=== PATIENT | female | born 1995 | race Caucasian/White ===

== ENCOUNTER 2017-04-30 13:25 | Outpatient (CLI) | payer OTHER, SELFPAY ==
[2017-04-30 13:46] VITALS: BMI 33.6
[2017-04-30 13:57] LABS: Hematocrit 33.2 % (37-47); Hemoglobin 10.7 g/dl (12.0-15.0); Mean Corp Hgb Conc 32.2 g/gl (32-36); Mean Corpuscular Hgb 24.7 pg (27.0-32.0); Mean Corpuscular Volume 76.7 fL (81-99); Mean Platelet Vol. 11.4 fl (6.2-12.0); Platelet Count 242 K/mm3 (150-450); Red Blood Count 4.33 M/mm3 (4.2-5.4); White Blood Count 11.4 K/mm3 (4.4-11.0)
[2017-04-30 14:01] LABS: Scan Indicated on CBC? Y/N NO
[2017-04-30 14:05] LABS: Partial Thromboplast Time 20.1 Seconds (24.1-36.2); Prothrombin Time (Protime)PT. 12.5 SECONDS (11.7-14.9)
[2017-04-30 14:07] LABS: AST(SGOT) 17 U/L (15-37); Alanine Aminotransfer ALT/SGPT 16 U/L (13-56); EST Glomerular Filtration Rate 130 mL/min (>60); Est Glom Filt Rate - Afr Amer 158 mL/min (>60); Estimated Creatinine Clearance 120.63 ml/min; Uric Acid 4.1 mg/dL (2.6-6.0)
[2017-04-30 15:01] LABS: Protein, Urine (Random) 11.1 mg/dL (<11.9); Protein:Creat Ratio 294 mg/g CRE (0-200)
--- NOTE | 2017-05-08 09:28 | OB.TRI.NOTE ---
History of Present Illness Date of Service: 04/30/17 Was patient seen by the physician?: Yes Reason For Visit: R/O PIH Date of Service: 04/30/17 Final STEPHANI Source: US <20 weeks Gestational age: 38+ History of Present Illness: 38+ week intrauterine presents to the office with elevated blood pressure. Sent to labor and delivery for PIH labs and extended monitoring. Home Medications Medication Instructions Recorded Vits [Prenatabs FA ] 1 tablet PO DAILY 04/30/17 Ibuprofen [Motrin] 800 mg PO TID PRN PRN #30 tab 05/02/17 Allergies No Known Allergies Allergy (Verified 04/30/17 13:46) NST - FHR Rate Baby A NST Reactive:: Yes Impression/Plan 38+ week intrauterine with early intermittent gestational hypertension and normal PIH labs; blood pressures subsided after bedrest and monitoring. Will have patient follow-up closely in the office and start bedrest. To call if she has any additional induced hypertension symptoms. Nonstress test reactive.
== END 2017-04-30 15:30 | disposition home or self-care (01) ==
LOC: WPOUT 13:25 → WP 13:26
PROVIDERS: Visit Provider Obstetrics & Gynecology
DX: O13.3 Gestational [pregnancy-induced] hypertension without significant proteinuria, third trimester (principal); Z3A.38 38 weeks gestation of pregnancy
CPT/HCPCS: 36415; 59025; 59050; 82565; 82570; 84156; 84450; 84460; 84550; 85027; 85610; 85730; 99218; G0378

== ENCOUNTER 2017-05-01 10:55 | Inpatient (IN) | payer OTHER, SELFPAY ==
[2017-05-01 11:09] VITALS: BMI 33.8
[2017-05-01 11:40] LABS: Hematocrit 33.7 % (37-47); Hemoglobin 10.6 g/dl (12.0-15.0); Mean Corp Hgb Conc 31.5 g/gl (32-36); Mean Corpuscular Hgb 24.3 pg (27.0-32.0); Mean Corpuscular Volume 77.1 fL (81-99); Mean Platelet Vol. 9.9 fl (6.2-12.0); Platelet Count 237 K/mm3 (150-450); RBC Distribution Width CV 15.1 % (11.6-14.6); RBC Distribution Width SD 42.7 fl (35.1-43.9); Red Blood Count 4.37 M/mm3 (4.2-5.4); Scan Indicated on CBC? Y/N NO; White Blood Count 9.9 K/mm3 (4.4-11.0)
[2017-05-01 11:46] LABS: Prothrombin Time (Protime)PT. 12.3 SECONDS (11.7-14.9)
[2017-05-01 11:51] LABS: AST(SGOT) 16 U/L (15-37); Alanine Aminotransfer ALT/SGPT 17 U/L (13-56); Creatinine, Serum 0.66 mg/dL (0.55-1.02); EST Glomerular Filtration Rate 117 mL/min (>60); Est Glom Filt Rate - Afr Amer 141 mL/min (>60); Estimated Creatinine Clearance 109.66 ml/min; Uric Acid 3.9 mg/dL (2.6-6.0)
[2017-05-01] MEDS: Lactated Ringers 1,000 ML 50 ML IV ×3 (12:23→23:15)
[2017-05-01] MEDS: Oxytocin 30 units/NS 500 ml 30 UNITS/500 ML IV.SOLN IV (12:23)
[2017-05-01 12:50] LABS: Protein, Urine (Random) 20.8 mg/dL (<11.9); Protein:Creat Ratio 369 mg/g CRE (0-200)
[2017-05-01] MEDS: Acetaminophen 325 MG Tablet PO (16:57)
[2017-05-01] MEDS: 0.9% Normal Saline 100 ML IV.SOLN. INTRA-UTER (18:47)
--- NOTE | 2017-05-01 18:58 | PCM.PN.BLA ---
Progress Note LABOR PROGRESS NOTE Headache resolved with Tylenol. Denies vision changes, abdominal pain. Has intermittent contractions. AVSS GEN - NAD,AAO x 3 SVE 1/70/-2 TOCO 4/10 min FHR 125, moderate variability, +acceleratiosn, no decelerations Neuro: +2 b/l LE and UE DTRs, no clonus ABD: soft, gravid, nontender A/P: 21yo G1 @ 39wga with preeclampsia, FHR Cat I -Labs and PMH reviewed with patient -Advised olivo bulb, reviewed risks, benefits, indications. Patient agreed to proceed. Olivo bulb placed with 55cc of NS. -Continue pitocin as tolerated by mother and fetus
[2017-05-01] MEDS: Nalbuphine 10 MG/ML Ampul IV (21:55)
[2017-05-02] MEDS: Nalbuphine 10 MG/ML Ampul IV ×3 (04:48→16:36)
[2017-05-02] MEDS: Lactated Ringers 1,000 ML 50 ML IV ×2 (06:36→17:45)
--- NOTE | 2017-05-02 08:33 | PCM.PN.OB ---
Subjective: Mild headache. Some contractions felt. Objective: Afeb BPs 130s/80-90s FHR tracing Cat1 - Physical Exam General: Alert, Oriented x3, Cooperative, No apparent distress Lungs: Clear to auscultation, Normal air movement Cardiovascular: Regular rate, Regular Rhythm Abdomen: Soft, Non Tender, Non-Distended, Gravid Extremities: Edema - 1+ Skin: No rashes Neurological: Neuro grossly intact Psych/Mental Status: Normal Affect Weight: 191 lb 2.252 oz Body Mass Index (BMI) 33.8 Intake and Output for Last 24 Hours 04/30/17 05/01/17 05/02/17 23:59 23:59 23:59 Intake Total 4264 / 4264 Output Total 900 / 900 Balance 3364 / 3364 Laboratory Tests Past 24 Hrs 05/01/17 05/01/17 05/01/17 11:20 11:20 11:20 WBC 9.9 RBC 4.37 Hgb 10.6 L Hct 33.7 L MCV 77.1 L MCH 24.3 L MCHC 31.5 L RDW 15.1 H RDW Differential 42.7 Plt Count 237 MPV 9.9 PT 12.3 INR 1.0 APTT 25.0 Creatinine Estim Creat Clear Calc Est GFR (MDRD) Af Amer Est GFR (MDRD) Non-Af Uric Acid AST ALT U Random Total Protein Urine Creatinine Protein/Creatinin Ratio Blood Type O POSITIVE Antibody Screen NEGATIVE 05/01/17 05/01/17 11:20 12:10 WBC RBC Hgb Hct MCV MCH MCHC RDW RDW Differential Plt Count MPV PT INR APTT Creatinine 0.66 Estim Creat Clear Calc 109.66 Est GFR (MDRD) Af Amer 141 Est GFR (MDRD) Non-Af 117 Uric Acid 3.9 AST 16 ALT 17 U Random Total Protein 20.8 H Urine Creatinine 56.40 Protein/Creatinin Ratio 369 H Blood Type Antibody Screen Assessment/Plan Admitted for induction of labor secondary to hypertension, likely preeclampsia. CE last 3cm membranes intact. Will continue pitocin induction. Consider AROM when jose luis better.
[2017-05-02] MEDS: Oxytocin 30 units/NS 500 ml 30 UNITS/500 ML IV.SOLN IV ×2 (11:01→23:54)
--- NOTE | 2017-05-02 12:25 | PCM.PN.OB ---
Subjective: Appears comfortable Objective: Afeb VSS FHR tracing Cat 1 - Physical Exam Comment: CE /-1 Weight: 191 lb 2.252 oz Body Mass Index (BMI) 33.8 Intake and Output for Last 24 Hours 04/30/17 05/01/17 05/02/17 23:59 23:59 23:59 Intake Total 4264 / 4264 Output Total 1500 / 1500 Balance 2764 / 2764 Laboratory Tests Past 24 Hrs 05/01/17 05/01/17 11:20 12:10 U Random Total Protein 20.8 H Urine Creatinine 56.40 Protein/Creatinin Ratio 369 H Blood Type O POSITIVE Antibody Screen NEGATIVE Assessment/Plan AROM performed with clear fluid noted. IUPC placed
--- NOTE | 2017-05-02 17:03 | PCM.PN.OB ---
Subjective: Uncomfortable with contractions Objective: BP elevated with painful contractions - Physical Exam General: Alert, Oriented x3, Cooperative, No apparent distress Abdomen: Non Tender, Gravid, Appropriate for Gestational Age Weight: 191 lb 2.252 oz Body Mass Index (BMI) 33.8 Intake and Output for Last 24 Hours 04/30/17 05/01/17 05/02/17 23:59 23:59 23:59 Intake Total 4944 / 4944 Output Total 2650 / 2650 Balance 2294 / 2294 Assessment/Plan No significant change in cervical exam over the last 5 hours. Pitocin at 20mu/min. Contractions adequate by Motevideo units. Will continue induction.,
--- NOTE | 2017-05-02 17:07 | PN.OBGYN_ITS ---
Subjective: Uncomfortable with contractions Objective: BP elevated with painful contractions - Physical Exam General: Alert, Oriented x3, Cooperative, No apparent distress Abdomen: Non Tender, Gravid, Appropriate for Gestational Age Weight: 191 lb 2.252 oz Body Mass Index (BMI) 33.8 Intake and Output for Last 24 Hours 04/30/17 05/01/17 05/02/17 23:59 23:59 23:59 Intake Total 4944 / 4944 Output Total 2650 / 2650 Balance 2294 / 2294 Assessment/Plan No significant change in cervical exam over the last 5 hours. Pitocin at 20mu/ min. Contractions adequate by Motevideo units. Will continue induction.,
[2017-05-02] MEDS: Oxytocin 30 units/NS 500 ml 30 UNITS/500 ML IV.SOLN 334 UNITS IV (22:45)
--- NOTE | 2017-05-02 22:57 | PCM.OB.VAG ---
- Problem List (1) Pre-eclampsia added to pre-existing hypertension Status: Acute Vaginal Delivery Maternal Presentation: Medically Indicated Induction Presents with elevated BPs and headache with increase in LE edema. Elevated Creatinine to protein ratio Method of Induction: Pitocin Medical Reason for Induction: Gestational Hypertension, Preeclampsia, eclampsia Amniotic Membrane Rupture Type: Artificial Rupture of Membrane time: 1230 Amniotic Fluid Description: Clear Final STEPHANI: 05/08/17 Final STEPHANI Source: US <20 weeks Gestational age: 39 Weeks and 1 Days Date of Procedure: 05/02/17 Pre-Operative Diagnosis: Labor Post-Operative Diagnosis: Same Surgery/ Procedure Performed: Spontaneous Vaginal Delivery Anesthesiologist: Edgardo Almaguer Type of Anesthesia: Epidural Description of Procedure: Progressed over 27 hours to FD then pushed for less than one hour to deliver a live male without complication. After delivery the nares and mouth were suctioned with a bulb suction. Delayed cord clamping was employed. After the cord was clamped and cut the baby was placed on mom's chest. Apgars were 8/9. The placenta was delivered spontaneously intact with a centrally located 3VC. The upper vagina and cervix were inspected and found to be intact. A small first degree posterior vaginal tear was repaired with a single figur of eight stitch of 2-0 vicryl. The uterus contracted well. Presentation: Vertex Placental Delivery Description: Spontaneous Placenta Disposition: [facility] Percentage of Placenta Abruption: 0 Cord Vessel Description: 3 Vessels Cord Entanglement: None Drain: Mejia to straight drain Estimated Blood Loss: 300cc A gender: Male (1 minute): 8 (5 minute): 9 Episiotomy Description: None Laceration: Midline, Vaginal Extension/lac, 1st degree Medications given after delivery: IV Pitocin Complications: None
[2017-05-02] MEDS: Methylergonovine 0.2 MG/ML Ampul IM (23:00)
--- NOTE | 2017-05-02 23:03 | OP.PCM_ITS ---
- Problem List (1) Pre-eclampsia added to pre-existing hypertension Status: Acute Vaginal Delivery Maternal Presentation: Medically Indicated Induction Presents with elevated BPs and headache with increase in LE edema. Elevated Creatinine to protein ratio Method of Induction: Pitocin Medical Reason for Induction: Gestational Hypertension, Preeclampsia, eclampsia Amniotic Membrane Rupture Type: Artificial Rupture of Membrane time: 1230 Amniotic Fluid Description: Clear Final STEPHANI: 05/08/17 Final STEPHANI Source: US <20 weeks Gestational age: 39 Weeks and 1 Days Date of Procedure: 05/02/17 Pre-Operative Diagnosis: Labor Post-Operative Diagnosis: Same Surgery/ Procedure Performed: Spontaneous Vaginal Delivery Anesthesiologist: Edgardo Almaguer Type of Anesthesia: Epidural Description of Procedure: Progressed over 27 hours to FD then pushed for less than one hour to deliver a live male without complication. After delivery the nares and mouth were suctioned with a bulb suction. Delayed cord clamping was employed. After the cord was clamped and cut the baby was placed on mom's chest. Apgars were 8/ 9. The placenta was delivered spontaneously intact with a centrally located 3VC. The upper vagina and cervix were inspected and found to be intact. A small first degree posterior vaginal tear was repaired with a single figur of eight stitch of 2-0 vicryl. The uterus contracted well. Presentation: Vertex Placental Delivery Description: Spontaneous Placenta Disposition: [facility] Percentage of Placenta Abruption: 0 Cord Vessel Description: 3 Vessels Cord Entanglement: None Drain: Mejia to straight drain Estimated Blood Loss: 300cc Infant A gender: Male (1 minute): 8 (5 minute): 9 Episiotomy Description: None Laceration: Midline, Vaginal Extension/lac, 1st degree Medications given after delivery: IV Pitocin Complications: None
--- NOTE | 2017-05-02 23:06 | DCINST_ITS ---
Discharge Diet: No Restrictions Discharge Activity: Return to Normal Activity, May Drive, May Shower Return to work on:: 06/30/17 May shower in (days): 0 May resume sexual activity in: 4-6 weeks Call your doctor if your incision/area has: Continuous Slow Oozing Call your doctor if you observe: Fever of 101 or Higher, Inability to urinate, Inability to have a bowel movement, Using more than one pad per hour, Shortness of breath, Chest pain, Calf discomfort, Uncontrolled pain Cleanse incision/area with: Soap & Water Additional Instructions: If you experience any of the following, contact your healthcare provider. * Bleeding that soaks a pad every hour for 2 hours * Fever 100.4 or higher * Unrelieved incision or abdominal pain * Swelling, redness, discharge or bleeding from your incision or episiotomy site * Your incision begins to separate * Problems urinating (including inability to urinate or burning while urinating) . * Visual changes * Severe headache * Flu-like symptoms * Pain or redness in one of both of your breasts * Pain, warmth, tenderness or swelling in your legs, especially the calf area * Frequent nausea and vomiting * Symptoms of depression or anxiety If you experience any of the following, call 911 or go to the nearest Emergency Room. * Chest pain * Problems breathing * Seizure activity * Partial or complete paralysis of a body part, slurred speech, weakness or drooping of the face, or a sudden inability to walk or hold your balance Allergies/Adverse Reactions: Allergies No Known Allergies Allergy (Verified 04/30/17 13:46) Medications to take at Discharge Vits [Prenatabs FA ] 1 tablet PO DAILY 04/30/17 Ibuprofen [Motrin] 800 mg PO TID PRN PRN #30 tab 05/02/17 The following prescriptions were given: Ibuprofen [Motrin] 800 mg PO TID PRN PRN #30 tab PRN Reason: pain or cramping Please Follow Up With: Cooper Greer MD When: 6 weeks Primary Care Physician: Care Physician,No Primary [Primary Care Provider] - Proposed Discharge Date: 05/04/17
[2017-05-02] MEDS: Oxytocin 30 units/NS 500 ml 30 UNITS/500 ML IV.SOLN 167 UNITS IV (23:15)
[2017-05-03] MEDS: Ibuprofen 600 MG Tablet PO ×3 (00:27→20:40)
[2017-05-03] MEDS: 0.9% Saline Lock 10 ML Syringe IV (00:28)
[2017-05-03 01:15] VITALS: BP 162/74; PULSE 101; RESP 18; TEMP 36.8
[2017-05-03 04:50] VITALS: BP 130/79; PULSE 112; RESP 18; TEMP 36.8
[2017-05-03 05:19] LABS: Hematocrit 30.2 % (37-47); Hemoglobin 9.7 g/dl (12.0-15.0); Mean Corp Hgb Conc 32.1 g/gl (32-36); Mean Corpuscular Hgb 24.7 pg (27.0-32.0); Mean Platelet Vol. 9.4 fl (6.2-12.0); Platelet Count 205 K/mm3 (150-450); RBC Distribution Width CV 15.3 % (11.6-14.6); Red Blood Count 3.92 M/mm3 (4.2-5.4); Scan Indicated on CBC? Y/N NO
--- NOTE | 2017-05-03 09:11 | PCM.PN.OB ---
Patient Problems: Active and Suspected Problems Pre-eclampsia added to pre-existing hypertension (Acute) Subjective: Doing well no complaints. Objective: Afeb VSS - Physical Exam General: Alert, Oriented x3, Cooperative, No apparent distress Lungs: Clear to auscultation, Normal air movement Cardiovascular: Regular rate, Regular Rhythm Abdomen: Soft, Non Tender, Non-Distended, - - Fundus firm nontender Extremities: No edema, No Calf Tenderness Skin: No rashes Neurological: Neuro grossly intact Psych/Mental Status: Normal Affect Comment: Lochia light Vital Signs Temp Pulse Resp BP 98.2 F 112 H 18 130/79 H 05/03/17 04:50 05/03/17 04:50 05/03/17 04:50 05/03/17 04:50 Oxygen Delivery Method Room Air Weight: 191 lb 2.252 oz Body Mass Index (BMI) 33.8 Intake and Output for Last 24 Hours 05/01/17 05/02/17 05/03/17 23:59 23:59 23:59 Intake Total 7522 / 7522 1887 / 1887 Output Total 3650 / 3650 2700 / 2700 Balance 3872 / 3872 -813 / -813 Laboratory Tests Past 24 Hrs 05/03/17 05:05 WBC 14.0 H RBC 3.92 L Hgb 9.7 L Hct 30.2 L MCV 77.0 L MCH 24.7 L MCHC 32.1 RDW 15.3 H RDW Differential 43.0 Plt Count 205 MPV 9.4 Assessment/Plan Active and Suspected Problems Pre-eclampsia added to pre-existing hypertension (Acute) Doing well on PP day#1. BPs stable. Continue routine PP care.
[2017-05-03 10:00] VITALS: BP 136/85; PULSE 100; RESP 16; TEMP 36.6
[2017-05-03 14:00] VITALS: BP 151/86; PULSE 99; RESP 16; TEMP 36.6
[2017-05-03] MEDS: Senna/Docusate Sodium 1 Tablet PO (14:05)
[2017-05-03 20:45] VITALS: BP 147/85; PULSE 88; RESP 16; TEMP 36.6
[2017-05-04 02:00] VITALS: BP 134/85; PULSE 89; RESP 16; TEMP 36.6
[2017-05-04 08:00] VITALS: BP 134/86; PULSE 88; RESP 18; TEMP 36.4
--- NOTE | 2017-05-04 08:50 | PCM.PN.OB ---
Patient Problems: Active and Suspected Problems Pre-eclampsia added to pre-existing hypertension (Acute) Subjective: Doing well no specific complaints. Bleeding light. Objective: AFeb VSS - Physical Exam General: Alert, Oriented x3, Cooperative, No apparent distress Lungs: Clear to auscultation, Normal air movement Cardiovascular: Regular rate, Regular Rhythm Abdomen: Soft, Non Tender, Non-Distended, - - Fundus firm nontender Extremities: Edema - mild Skin: No rashes Neurological: Neuro grossly intact Psych/Mental Status: Normal Affect Comment: Lochia light Vital Signs Temp Pulse Resp BP 97.9 F 89 16 134/85 H 05/04/17 02:00 05/04/17 02:00 05/04/17 02:00 05/04/17 02:00 Oxygen Delivery Method Room Air Weight: 191 lb 2.252 oz Body Mass Index (BMI) 33.8 Intake and Output for Last 24 Hours 05/02/17 05/03/17 05/04/17 23:59 23:59 23:59 Intake Total 7522 / 7522 1887 / 1887 Output Total 3650 / 3650 2700 / 2700 Balance 3872 / 3872 -813 / -813 Assessment/Plan Active and Suspected Problems Pre-eclampsia added to pre-existing hypertension (Acute) Doing well on PP day#2. Cleared for discharge home today. Home going instructions and warnings given.
--- NOTE | 2017-05-04 08:52 | PCM.DC.SUM ---
Discharge Date and Diagnosis - Problem List Patient Problems: Active and Suspected Problems Pre-eclampsia added to pre-existing hypertension (Acute) Date of Admission: 05/01/17 Date of Discharge: 05/04/17 - Primary Discharge Diagnosis Active and Suspected Problems Pre-eclampsia added to pre-existing hypertension (Acute), S/P Hospital Course and Treatment Consultations 05/01/17 11:10 Consult: Anesthesia Routine Comment: Reason For Exam: INDUCTION Operations: None Procedures: - - Pitocin induction, epidural, Summary of Care Provided: The patient is a 21 year old F [admitted with elevated BP/preeclampsia. Pitocin induction was performed with resultant without complication. Post course unremarkable. Discharged home on PP day#2.] Discharge Diet: No Restrictions Discharge Activity: Return to Normal Activity, May Drive, May Shower Return to work on:: 06/30/17 May shower in (days): 0 May resume sexual activity in: 4-6 weeks Call your doctor if your incision/area has: Continuous Slow Oozing Call your doctor if you observe: Fever of 101 or Higher, Inability to urinate, Inability to have a bowel movement, Using more than one pad per hour, Shortness of breath, Chest pain, Calf discomfort, Uncontrolled pain Cleanse incision/area with: Soap & Water Home Medications: Medications to take at Discharge Vits [Prenatabs FA ] 1 tablet PO DAILY 04/30/17 Ibuprofen [Motrin] 800 mg PO TID PRN PRN #30 tab 05/02/17 Following Prescrptions Were Given to Patient: Ibuprofen [Motrin] 800 mg PO TID PRN PRN #30 tab PRN Reason: pain or cramping Primary Care Physician: Care Physician,No Primary [Primary Care Provider] - Please Follow Up With: Cooper Greer MD When: 6 weeks Disposition: Home Minutes spent on discharge:: 15 Patient Condition:: Good Meaningful Use Info Meaningful Use Diagnoses (Choose all that apply): None applicable
[2017-05-04] MEDS: Acetaminophen 500 MG Tablet 1000 MG PO ×2 (10:47→19:02)
[2017-05-04 14:00] VITALS: BP 147/95; PULSE 69; RESP 18; TEMP 36.4; O2SAT 100
--- NOTE | 2017-05-04 15:30 | NURSING ---
Dr. Dodge notified of BP - ok to d/c to [facility].
[2017-05-04 19:00] VITALS: BP 143/99; PULSE 92; RESP 20; TEMP 36.4; O2SAT 97
--- NOTE | 2017-05-06 08:21 | PCM.HP.STD ---
Problem List (1) Pre-eclampsia added to pre-existing hypertension Status: Acute History of Present Illness Date of Admission: 05/01/17 Chief Complaint: elevated BP headache, edema. 38+ weeks The patient is a 21 year old F [found to have elevated BPs in office with mild heache. 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 Denies: Chest Pain, Chest Pressure, Chest Tightness Gastrointestinal: Denies: Abdominal Pain Genitourinary: Denies: Dysuria Neurological: Reports: Headaches - mild not relieved by tylenol Psychiatric: Denies: Anxiety, Depression VTE Information - Inpt Only VTE Present on Admission: No VTE Mechan Device Prophylaxis: None VTE Pharm Prophylaxis ordered?: No Reason prophylaxis not ordered:: Treatment Not Indicated Subjective: Alert no specific complaints other than headache and lower extremity edema Objective: Afe BPs 150-160s/90-100s - Physical Exam General: Alert, Oriented x3, Cooperative, No apparent distress Lungs: Clear to auscultation, Normal air movement Cardiovascular: Regular rate, Regular Rhythm Abdomen: Soft, Non Tender, Non-Distended, Gravid, Appropriate for Gestational Age Extremities: Edema - 1+ Skin: No rashes Neurological: Neuro grossly intact Psych/Mental Status: Normal Affect Comment: CE 1-2 cm 50% Vital Signs Temp Pulse Resp BP Pulse Ox 97.5 F L 92 20 H 143/99 H 97 05/04/17 19:00 05/04/17 19:00 05/04/17 19:00 05/04/17 19:00 05/04/17 19:00 Oxygen Delivery Method Room Air Weight: 191 lb 2.252 oz Body Mass Index (BMI) 33.8 Assessment/Plan Preeclampsia at term. Admit for induction of labor. Reassuring FHR tracing.
--- NOTE | 2017-05-06 08:26 | HP.PCM_ITS ---
Problem List (1) Pre-eclampsia added to pre-existing hypertension Status: Acute History of Present Illness Date of Admission: 05/01/17 Chief Complaint: elevated BP headache, edema. 38+ weeks The patient is a 21 year old F [found to have elevated BPs in office with mild heache. 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 Denies: Chest Pain, Chest Pressure, Chest Tightness Gastrointestinal: Denies: Abdominal Pain Genitourinary: Denies: Dysuria Neurological: Reports: Headaches - mild not relieved by tylenol Psychiatric: Denies: Anxiety, Depression VTE Information - Inpt Only VTE Present on Admission: No VTE Mechan Device Prophylaxis: None VTE Pharm Prophylaxis ordered?: No Reason prophylaxis not ordered:: Treatment Not Indicated Subjective: Alert no specific complaints other than headache and lower extremity edema Objective: Afe BPs 150-160s/90-100s - Physical Exam General: Alert, Oriented x3, Cooperative, No apparent distress Lungs: Clear to auscultation, Normal air movement Cardiovascular: Regular rate, Regular Rhythm Abdomen: Soft, Non Tender, Non-Distended, Gravid, Appropriate for Gestational Age Extremities: Edema - 1+ Skin: No rashes Neurological: Neuro grossly intact Psych/Mental Status: Normal Affect Comment: CE 1-2 cm 50% Vital Signs Temp Pulse Resp BP Pulse Ox 97.5 F L 92 20 H 143/99 H 97 05/04/17 19:00 05/04/17 19:00 05/04/17 19:00 05/04/17 19:00 05/04/17 19:00 Oxygen Delivery Method Room Air Weight: 191 lb 2.252 oz Body Mass Index (BMI) 33.8 Assessment/Plan Preeclampsia at term. Admit for induction of labor. Reassuring FHR tracing.
== END 2017-05-04 19:10 | disposition home or self-care (01) | DRG 774 ==
PROVIDERS: Admitting Provider Obstetrics & Gynecology; Visit Provider Obstetrics & Gynecology
DX: O11.4 Pre-existing hypertension with pre-eclampsia, complicating childbirth (principal); O10.92 Unspecified pre-existing hypertension complicating childbirth; O71.4 Obstetric high vaginal laceration alone; O13.4 Gestational [pregnancy-induced] hypertension without significant proteinuria, complicating childbirth; Z37.0 Single live birth; Z3A.39 39 weeks gestation of pregnancy; Z87.891 Personal history of nicotine dependence
CPT/HCPCS: 59025; 59050; 82565; 82570; 84156; 84450; 84460; 84550; 85027; 85610; 85730; 86850; 86900; 99218; J7050; J7120; 90686; A4216; G0378

== ENCOUNTER → 2018-11-11 | Outpatient (CLI) | payer SELFPAY ==
[2018-11-11 17:33] LABS: Chlamydia Trachomatis by PCR Negative (Negative); Neisserai gonorrhoeae by PCR Negative (Negative); Probe Check PASS; Sample Adequacy Control PASS; Specimen Processing Control PASS
[2018-11-19 12:54] LABS: HPV APTIMA, High Risk Positive (Negative)
[2018-11-19 12:58] LABS: HPV Reflexed? YES, CHARGE PATIENT
== END | disposition home or self-care (01) ==
LOC: LABSPEC 14:39
PROVIDERS: Visit Provider Obstetrics & Gynecology
DX: Z11.3 Encounter for screening for infections with a predominantly sexual mode of transmission (principal); Z12.4 Encounter for screening for malignant neoplasm of cervix
CPT/HCPCS: 87491; 87591; 87624; 88175; G0145

== ENCOUNTER → 2018-11-20 10:03 | Outpatient (CLI) | payer SELFPAY ==
[2018-11-20 13:53] LABS: Absolute Lymphocyte Count 1.83 X10^3/uL (0.83-4.51); Absolute Neutrophil Count 6.6 X10^3/uL (2.0-7.7); Basophil# 0.05 X10^3/uL; Basophil% 0.5 % (0-1); Eosinophil# 0.19 X10^3/uL; Hemoglobin 14.4 g/dL (12.0-15.0); Lymphocyte # 1.83 X10^3/ul (4.0); Lymphocyte % 19.6 % (19-41); Mean Corp Hgb Conc 33.5 g/dL (32-36); Mean Corpuscular Hgb 28.6 pg (27.0-32.0); Mean Corpuscular Volume 85.5 fL (81-99); Mean Platelet Vol. 10.1 fl (6.2-12.0); Monocyte# 0.65 X10^3/uL; NRBC Flagged by Analyzer 0 % (0-5); Neutrophil # 6.57 X10^3/uL (2.7-7.7); Neutrophil % 70.6 % (47-70); Platelet Count 277 K/mm3 (150-450); RBC Distribution Width CV 12.7 % (11.6-14.6); RBC Distribution Width SD 39.4 fl (35.1-43.9); Red Blood Count 5.03 M/mm3 (4.2-5.4); White Blood Count 9.3 K/mm3 (4.4-11.0)
[2018-11-20 13:55] LABS: Color, Urine Yellow (Yellow); Glucose, Dipstick 100 mg/dl (Normal); Ketone-Dipstick Negative (Negative); Leukocyte Esterase-Dipstick 100 /ul (Negative); Nitrite-Dipstick Negative (Negative); Occult Blood-Urine Negative /ul (Negative); Protein-Dipstick Negative (Negative); Urine Bilirubin Dipstick Negative (Negative); Urine Clarity Clear (Clear); Urine Urobilinogen Normal (Normal)
[2018-11-20 14:12] LABS: Thyroid Stim Hormone (TSH) 1.62 uIU/mL (0.358-3.74)
[2018-11-20 14:53] LABS: Amphetamine Urine VISTA NEGATIVE (<1000 ng/mL); Barbiturate Urine VISTA NEGATIVE (< 200 ng/mL); Benzodiazepine Urine VISTA NEGATIVE (< 200 ng/mL); Cocaine Urine VISTA NEGATIVE (< 300 ng/mL); Ecstacy Urine VISTA NEGATIVE (< 500 ng/mL); HIV - WCH Non-Reactive (Nonreactive); Hepatitis B Surface Antigen Non-Reactive (Nonreactive); Hepatitis C Antibody Non-Reactive (Nonreactive); Methadone Urine VISTA NEGATIVE (< 300 ng/mL); PCP Urine VISTA NEGATIVE (< 25 ng/mL); Rubella IgG 63.4 IU/mL; THC Urine VISTA NEGATIVE (< 50 ng/mL); Vista UDS pH Range 6
[2018-11-27 01:45] LABS: Prenatal RPR NONREACTIVE (NONREACTIVE)
== END ==
PROVIDERS: Visit Provider Obstetrics & Gynecology
DX: Z34.81 Encounter for supervision of other normal pregnancy, first trimester (principal)
CPT/HCPCS: 36415; 80307; 81002; 84443; 85025; 86703; 86762; 86803; 87340

== ENCOUNTER → 2018-12-17 14:01 | Outpatient (CLI) | payer OTHER, SELFPAY ==
[2018-12-20 03:06] LABS: AFP MoM Value 1.18 (.); AFP Value-EIA 36.2 ng/mL (.); Comment Report (.); DIA MoM Value 1.48 (.); DSR (By Age) 1008 (.); DSR (Second Trimester) 4737 (.); Insulin Dep Diabetes No (.); Maternal Age At EDD 25.5 yr (.); hCG MoM 0.89 (.); hCG Value 58576 mIU/mL (.)
[2018-12-21 13:45] LABS: Gestat. Age Based On Ultrasound (.)
== END ==
PROVIDERS: Visit Provider Obstetrics & Gynecology
DX: Z34.82 Encounter for supervision of other normal pregnancy, second trimester (principal)
CPT/HCPCS: 36415; 82105; 82677; 84702

== ENCOUNTER → 2019-04-26 14:53 | Outpatient (CLI) | payer OTHER, SELFPAY ==
[2019-04-26 16:10] LABS: Hematocrit 36.9 % (37-47); Hemoglobin 11.7 g/dL (12.0-15.0); Mean Corp Hgb Conc 31.7 g/dL (32-36); Mean Corpuscular Hgb 26.3 pg (27.0-32.0); Mean Corpuscular Volume 82.9 fL (81-99); Mean Platelet Vol. 10.6 fl (6.2-12.0); Platelet Count 250 K/mm3 (150-450); RBC Distribution Width CV 13.8 % (11.6-14.6); Red Blood Count 4.45 M/mm3 (4.2-5.4); White Blood Count 9.2 K/mm3 (4.4-11.0)
[2019-04-26 16:20] LABS: International Normalized Ratio 0.9; Partial Thromboplast Time 25.2 Seconds (24.1-36.2); Prothrombin Time (Protime)PT. 12.4 SECONDS (11.7-14.9)
[2019-04-26 16:36] LABS: AST(SGOT) 17 U/L (15-37); Alanine Aminotransfer ALT/SGPT 16 U/L (13-56); Creatinine, Serum 0.73 mg/dL (0.55-1.02); EST Glomerular Filtration Rate 103 mL/min (>60); Est Glom Filt Rate - Afr Amer 125 mL/min (>60); Uric Acid 3.5 mg/dL (2.6-6.0)
== END ==
PROVIDERS: Visit Provider Obstetrics & Gynecology
DX: O13.3 Gestational [pregnancy-induced] hypertension without significant proteinuria, third trimester (principal); Z3A.00 Weeks of gestation of pregnancy not specified
CPT/HCPCS: 36415; 82565; 84450; 84460; 84550; 85027; 85610; 85730

== ENCOUNTER → 2019-05-11 | Outpatient (CLI) | payer BC, SELFPAY | END | disposition home or self-care (01) | PROVIDERS: Visit Provider Obstetrics & Gynecology | DX: Z36.85 Encounter for antenatal screening for Streptococcus B (principal) | CPT/HCPCS: 87081 ==

== ENCOUNTER 2019-06-01 07:08 | Inpatient (IN) | payer BC, SELFPAY ==
[2019-06-01] VITALS (26 sets, daily range): BP systolic 105–131; BP diastolic 55–93; PULSE 58–107; TEMP 36.2–36.9; O2SAT 98–100; BMI 31.7
[2019-06-01] MEDS: Lactated Ringers 1,000 ML 50 ML IV ×2 (07:30→18:07)
[2019-06-01] MEDS: Oxytocin 30 units/NS 500 ml 30 UNITS/500 ML IV.SOLN IV ×2 (07:51→20:34)
[2019-06-01 07:56] LABS: Absolute Lymphocyte Count 2.18 X10^3/uL (0.83-4.51); Absolute Neutrophil Count 4.2 X10^3/uL (2.0-7.7); Basophil# 0.03 X10^3/uL; Basophil% 0.4 % (0-1); Eosinophil# 0.13 X10^3/uL; Eosinophils% 1.8 % (0-5); Hemoglobin 12.4 g/dL (12.0-15.0); Lymphocyte # 2.18 X10^3/ul (4.0); Lymphocyte % 30.5 % (19-41); Mean Corp Hgb Conc 31.8 g/dL (32-36); Mean Corpuscular Hgb 25.5 pg (27.0-32.0); Mean Corpuscular Volume 80.1 fL (81-99); Mean Platelet Vol. 10.9 fl (6.2-12.0); Monocyte# 0.54 X10^3/uL; Monocyte% 7.6 % (0-10); NRBC Flagged by Analyzer 0 % (0-5); Neutrophil # 4.19 X10^3/uL (2.7-7.7); Neutrophil % 58.7 % (47-70); Platelet Count 217 K/mm3 (150-450); RBC Distribution Width CV 15.6 % (11.6-14.6); RBC Distribution Width SD 44.2 fl (35.1-43.9); Red Blood Count 4.87 M/mm3 (4.2-5.4); White Blood Count 7.1 K/mm3 (4.4-11.0)
--- NOTE | 2019-06-01 08:19 | PCM.HP.OB ---
- Problem List (1) 39 weeks gestation of Status: Acute History Date of Admission: 05/01/17 Final STEPHANI: 06/06/19 Final STEPHANI Source: US <20 weeks Gestational age: 39 Weeks and 2 Days History of this : This is a 23 year-old, G [2], P [1], at 39 weeks gestational age. Here for an elective induction of labor. Allergies No Known Allergies Allergy (Verified 06/01/19 07:26) Home Medications: Home Medications Vits [Prenatabs FA ] 1 tablet PO DAILY 04/30/17 Smoking Status: Former smoker Alcohol: None Number of Fetus(es): 1 NST - FHR Rate Baby A Baseline: 155 Variability:: Moderate Accelerations:: 15 x 15 Decelerations:: None NST Reactive:: Yes FHR Category:: Category I Uterine Activity:: Q4-5min History Past Pregnancies: PRIOR DELIVERY HISTORY DEL DATE GEST LAB WT LB WT OZ TYPE ANES LABOR TX 16 May 04 38 36 8 5 Vag Epidural No Expected Infant Delivery Method: Spontaneous Vaginal Number of Visits: 11 Review of Systems Constitutional: Denies: Chills, Fever, Weight Change HEENT: Denies: Head Aches, Sinus Congestion, Sinus Drainage Cardiovascular: Denies: Chest Pain, Palpitations Respiratory: Denies: Cough, Shortness of breath at rest, Sputum production Gastrointestinal: Denies: Abdominal Pain, Nausea, Vomiting Genitourinary: Denies: Dysuria Musculoskeletal: Denies: Joint Pain, Joint Tenderness Skin: Denies: Rash, Wounds Neurological: Denies: Numbness, Tingling, Focal weakness Psychiatric: Denies: Anxiety, Depression, Homicidal Ideations, Suicidal Ideations Hematologic/ Lymphatic: Denies: Easy Bruising, Easy Bleeding Physical Exam Vitals: Vital Signs Temp Pulse BP 98.1 F 86 121/78 H 06/01/19 07:57 06/01/19 07:45 06/01/19 07:45 General: Alert, Oriented x3, No apparent distress HEENT: Atraumatic, Normocephalic. Negative for: Thyromegaly, Lymphadenopathy Cardiovascular: Regular rate, Regular Rhythm Lungs: Clear to auscultation Abdomen: Bowel Sounds Present, Gravid Neurological: Deep Tendon Reflexes 2+/4 and Symmetrical, Neuro grossly intact MANAGEMENT TRAINER: Normal external genitalia. Negative for: Vulvar lesions Estimated gestational size: Appropriate for gestational size Presentation: Cephalic Cervix Dilation (cm): 1.5 Station: -3 Effacement (%): 50 Assessment/Plan All Active Problems Pre-eclampsia added to pre-existing hypertension (Acute) 39 weeks gestation of (Acute) A/P: This is a 23 year-old, G [2], P [1], at 39 weeks gestational age. Here for elective induction of labor with Pitocin. May AROM later. Continue with IOL. Plans to avoid epidural, but understands pain options. To recheck SVE in 4 hours or as needed Expect
--- NOTE | 2019-06-01 13:05 | PCM.PN.BLA ---
Progress Note S: Starting to really feel contractions, but doing well O: VSS UC Q2-3minutes SVE 1.5/50/-2 Membranes intact Baseline FHR 150, +accels, -decels, moderate variability A/P: IOL at 39 weeks Reactive NST Pitocin 14u Cervix has unchanged. Will plan to recheck in 2 hours with potential AROM STROKE Vital Signs/Narrative: Vital Signs Temp Pulse BP 06/01/19 12:12 97.3 F L 70 125/77 H 06/01/19 11:29 61 119/79 06/01/19 10:54 63 122/86 H 06/01/19 10:20 59 L 119/82 H 06/01/19 10:15 98.4 F
--- NOTE | 2019-06-01 17:12 | PN.OBGYN_ITS ---
Patient Problems: Active and Suspected Problems 39 weeks gestation of (Acute) Subjective: Feeling pain with contractions, moderate, 7/10. Tired, but doing okay. Objective: VSS. Contractions palpate moderate. UC 2-5 minutes. Pitocin on at 20u. SVE unchanged 1.5/50/-2 mid moderate - Physical Exam Vitals/I&O's: Vital Signs Temp Pulse BP Pulse Ox 97.7 F L 58 L 105/55 L 100 06/01/19 16:19 06/01/19 16:39 06/01/19 16:39 06/01/19 15:43 Weight: 81.2 kg Body Mass Index (BMI) 31.7 Intake and Output for Last 24 Hours 05/30/19 05/31/19 06/01/19 23:59 23:59 23:59 Intake Total 1324.10 / 1324.10 Output Total 1750 / 1750 Balance -425.90 / -425.90 General: Alert, Oriented x3, Cooperative HEENT: Atraumatic, PERRLA, EOMI, Normocephalic Neck: Supple, No JVD, Negative Carotid Bruits Lungs: Clear to auscultation, Normal air movement Cardiovascular: Regular rate, No murmurs Abdomen: Bowel Sounds Present, Soft, Non Tender Extremities: No edema, Capillary Refill Less than 3 Seconds Skin: No rashes, No breakdown Musculoskeletal: No Tenderness to Palpation of Joints or Extremities Neurological: Cranial nerves II-XII grossly intact Psych/Mental Status: Normal Affect, Appropriate Laboratory Results 06/01/19 07:30: WBC 7.1, RBC 4.87, Hgb 12.4, Hct 39.0, MCV 80.1 L, MCH 25.5 L, MCHC 31.8 L, RDW Std Deviation 44.2 H, RDW Coeff of Angel 15.6 H, Plt Count 217, MPV 10.9, Immature Gran % (Auto) 1.000 H, Neut % (Auto) 58.7, Lymph % (Auto) 30.5, [place] % (Auto) 7.6, Eos % (Auto) 1.8, Baso % (Auto) 0.4, Absolute Neuts (auto) 4.2, Absolute Lymphs (auto) 2.18, Nucleated RBC % 0 06/01/19 07:30: Blood Type O POSITIVE, Antibody Screen NEGATIVE Current Medications Acetaminophen (Tylenol) 325 - 650 mg PO Q4H PRN PRN PRN Reason: Pain Score 1-3/10 Al Hydroxide/Mg Hydroxide (Mylanta Ii) 15 - 30 ml PO Q4H PRN PRN PRN Reason: INDIGESTION Citric Acid/Sodium Citrate (Bicitra) 30 ml PO X1 PRN PRN Reason: Section Fentanyl Citrate (Sublimaze (100mcg Ampule)) 25 - 50 mcg IV Q2H PRN PRN PRN Reason: Pain Score 4-10/10 Lactated Ringer's () 500 mls @ 999 mls/hr IV .Q31M PRN PRN Reason: Epidural Lactated Ringer's () 500 mls @ 999 mls/hr IV .Q31M PRN PRN Reason: Corrective Measures Lactated Ringer's () 1,000 mls @ 50 mls/hr IV .Q20H [facility] Last Admin: 06/01/19 07:30 Dose: 50 mls/hr Documented by: Oxytocin/Sodium Chloride () 30 units in 500 mls @ 2 mls/hr IV .Q250H [facility] Last Infusion: 06/01/19 17:08 Dose: 0 mls/hr Documented by: Ondansetron HCl (Zofran) 4 mg IV Q4H PRN PRN PRN Reason: NAUSEA Prochlorperazine Edisylate (Compazine Iv) 10 mg IV Q6H PRN PRN PRN Reason: NAUSEA Sodium Chloride () 10 - 40 ml IV X1 PRN PRN Reason: SALINE FLUSH Medical Necessity - Tobacco Use Smoking Status: Former smoker Assessment/Plan All Active Problems Pre-eclampsia added to pre-existing hypertension (Acute) 39 weeks gestation of (Acute) A/P: elective induction of labor Pitocin at max 20/u with irregular contraction pattern Discussed case with Dr. Jeffries whom agrees with travel writer's plan to turn off Pitocin, allow patient to eat, and start Cytotec for cervical ripening. Patient educated on plan of care and is agreeable d/t unchanged cervix. Will eat and start Cytotec in 1 hour
--- NOTE | 2019-06-01 20:29 | PN.OBGYN_ITS ---
Patient Problems: Active and Suspected Problems 39 weeks gestation of (Acute) Subjective: Contractions are a lot less painful now /10. Feeling well. Objective: VSS. UC Q3-5 minutes. SVE 2/75/-1, soft, mid to anterior. FHR baseline 150, + accels, - decels, moderate variability. - Physical Exam Vitals/I&O's: Vital Signs Temp Pulse BP Pulse Ox 98.1 F 89 122/80 H 100 06/01/19 19:20 06/01/19 19:20 06/01/19 19:20 06/01/19 18:43 Weight: 81.2 kg Body Mass Index (BMI) 31.7 Intake and Output for Last 24 Hours 05/30/19 05/31/19 06/01/19 23:59 23:59 23:59 Intake Total 2374.93 / 2374.93 Output Total 2750 / 2750 Balance -375.07 / -375.07 General: Alert, Oriented x3, Cooperative HEENT: Atraumatic, PERRLA, EOMI, Normocephalic Neck: Supple, No JVD, Negative Carotid Bruits Lungs: Clear to auscultation, Normal air movement Cardiovascular: Regular rate, No murmurs Abdomen: Bowel Sounds Present, Soft, Non Tender, Gravid Extremities: No edema, Capillary Refill Less than 3 Seconds Skin: No rashes, No breakdown Musculoskeletal: No Tenderness to Palpation of Joints or Extremities Neurological: Cranial nerves II-XII grossly intact Psych/Mental Status: Normal Affect, Appropriate Laboratory Results 06/01/19 07:30: WBC 7.1, RBC 4.87, Hgb 12.4, Hct 39.0, MCV 80.1 L, MCH 25.5 L, MCHC 31.8 L, RDW Std Deviation 44.2 H, RDW Coeff of Angel 15.6 H, Plt Count 217, MPV 10.9, Immature Gran % (Auto) 1.000 H, Neut % (Auto) 58.7, Lymph % (Auto) 30.5, [place] % (Auto) 7.6, Eos % (Auto) 1.8, Baso % (Auto) 0.4, Absolute Neuts (auto) 4.2, Absolute Lymphs (auto) 2.18, Nucleated RBC % 0 06/01/19 07:30: Blood Type O POSITIVE, Antibody Screen NEGATIVE Current Medications Acetaminophen (Tylenol) 325 - 650 mg PO Q4H PRN PRN PRN Reason: Pain Score 1-3/10 Al Hydroxide/Mg Hydroxide (Mylanta Ii) 15 - 30 ml PO Q4H PRN PRN PRN Reason: INDIGESTION Citric Acid/Sodium Citrate (Bicitra) 30 ml PO X1 PRN PRN Reason: Section Fentanyl Citrate (Sublimaze (100mcg Ampule)) 25 - 50 mcg IV Q2H PRN PRN PRN Reason: Pain Score 4-10/10 Lactated Ringer's () 500 mls @ 999 mls/hr IV .Q31M PRN PRN Reason: Epidural Lactated Ringer's () 500 mls @ 999 mls/hr IV .Q31M PRN PRN Reason: Corrective Measures Lactated Ringer's () 1,000 mls @ 50 mls/hr IV .Q20H [facility] Last Admin: 06/01/19 18:07 Dose: 50 mls/hr Documented by: Oxytocin/Sodium Chloride () 30 units in 500 mls @ 2 mls/hr IV .Q250H [facility] Last Infusion: 06/01/19 17:08 Dose: 0 mls/hr Documented by: Oxytocin/Sodium Chloride () 30 units in 500 mls @ 2 mls/hr IV .Q250H [facility] Ondansetron HCl (Zofran) 4 mg IV Q4H PRN PRN PRN Reason: NAUSEA Prochlorperazine Edisylate (Compazine Iv) 10 mg IV Q6H PRN PRN PRN Reason: NAUSEA Sodium Chloride () 10 - 40 ml IV X1 PRN PRN Reason: SALINE FLUSH Medical Necessity - Tobacco Use Smoking Status: Former smoker Assessment/Plan All Active Problems Pre-eclampsia added to pre-existing hypertension (Acute) 39 weeks gestation of (Acute) A/P: here for induction of labor Pitocin has been turned off for 2 hours SVE changed with bloody show With contraction pattern, will restart Pitocin slowly Category I FHR tracing POC reviewed with attending Dr. Greer
[2019-06-02] VITALS (47 sets, daily range): BP systolic 95–131; BP diastolic 51–82; PULSE 67–97; RESP 16–18; TEMP 36.2–37.2; O2SAT 90–100
--- NOTE | 2019-06-02 08:10 | PCM.PN.OB ---
Patient Problems: Active and Suspected Problems 39 weeks gestation of (Acute) Subjective: Feeling well. Got some sleep overnight. No pain. Objective: VSS. UC still irregular on Pitocin, Q2-7 minutes. SVE 50/-2 firm, posterior. - Physical Exam Vitals/I&O's: Vital Signs Temp Pulse BP Pulse Ox 97.3 F L 73 125/76 H 98 06/02/19 07:27 06/02/19 07:28 06/02/19 07:28 06/01/19 20:53 Weight: 81.2 kg Body Mass Index (BMI) 31.7 Intake and Output for Last 24 Hours 05/31/19 06/01/19 06/02/19 23:59 23:59 23:59 Intake Total 4027.10 / 4027.10 307.47 / 307.47 Output Total 3350 / 3350 1000 / 1000 Balance 677.10 / 677.10 -692.53 / -692.53 General: Alert, Oriented x3, Cooperative HEENT: Atraumatic, PERRLA, EOMI, Normocephalic Neck: Supple, No JVD, Negative Carotid Bruits Lungs: Clear to auscultation, Normal air movement Cardiovascular: Regular rate, No murmurs Abdomen: Bowel Sounds Present, Soft, Non Tender Extremities: No edema, Capillary Refill Less than 3 Seconds Skin: No rashes, No breakdown Musculoskeletal: No Tenderness to Palpation of Joints or Extremities Neurological: Cranial nerves II-XII grossly intact Psych/Mental Status: Normal Affect, Appropriate Laboratory Results 06/01/19 07:30: Blood Type O POSITIVE, Antibody Screen NEGATIVE Current Medications Acetaminophen (Tylenol) 325 - 650 mg PO Q4H PRN PRN PRN Reason: Pain Score 1-3/10 Al Hydroxide/Mg Hydroxide (Mylanta Ii) 15 - 30 ml PO Q4H PRN PRN PRN Reason: INDIGESTION Citric Acid/Sodium Citrate (Bicitra) 30 ml PO X1 PRN PRN Reason: Section Fentanyl Citrate (Sublimaze (100mcg Ampule)) 25 - 50 mcg IV Q2H PRN PRN PRN Reason: Pain Score 4-10/10 Lactated Ringer's () 500 mls @ 999 mls/hr IV .Q31M PRN PRN Reason: Epidural Lactated Ringer's () 500 mls @ 999 mls/hr IV .Q31M PRN PRN Reason: Corrective Measures Lactated Ringer's () 1,000 mls @ 50 mls/hr IV .Q20H [facility] Last Admin: 06/01/19 18:07 Dose: 50 mls/hr Documented by: Oxytocin/Sodium Chloride () 30 units in 500 mls @ 2 mls/hr IV .Q250H [facility] Last Infusion: 06/02/19 05:59 Dose: 12 mls/hr Documented by: Ondansetron HCl (Zofran) 4 mg IV Q4H PRN PRN PRN Reason: NAUSEA Prochlorperazine Edisylate (Compazine Iv) 10 mg IV Q6H PRN PRN PRN Reason: NAUSEA Sodium Chloride () 10 - 40 ml IV X1 PRN PRN Reason: SALINE FLUSH Medical Necessity - Tobacco Use Smoking Status: Former smoker Assessment/Plan All Active Problems Pre-eclampsia added to pre-existing hypertension (Acute) 39 weeks gestation of (Acute) A/P: Spoke with Dr. Greer, attending MD today. He will come to to AROM patient this AM. To continue with Pitocin NST Reactive Category I SVE slightly changed overnight from 2-3cm Will recheck SVE in 4 hours
[2019-06-02] MEDS: Lactated Ringers 500 ML 999 ML IV (11:24)
[2019-06-02] MEDS: fentaNYL-bupivacaine (epidural) 100 ML BAG EPIDURAL (12:08)
[2019-06-02] MEDS: Lactated Ringers 1,000 ML 200 ML IV (12:26)
--- NOTE | 2019-06-02 13:52 | PCM.PN.BLA ---
Progress Note S: Not having any pain at all and is comfortable O: VSS SVE 5.5/80/-2 UC Q3-4 minutes FHR baseline 150, +accels, variables at times, moderate variability Epidural in place A: Pain well controlled with epidural Active labor after AROM Category II NST at times Pitocin 16 P: Continue IOL at 16u, to increase Pitocin as tolerated Expect STROKE Vital Signs/Narrative: Vital Signs Temp Pulse BP Pulse Ox 06/02/19 13:24 79 100 06/02/19 13:02 75 109/63 06/02/19 12:31 88 109/69 06/02/19 12:28 70 100 06/02/19 12:27 98.7 F 06/02/19 12:25 72 105/61 06/02/19 12:23 81 100 06/02/19 12:20 88 111/66 06/02/19 12:18 92 100 06/02/19 12:15 84 110/66 06/02/19 12:13 84 100 06/02/19 12:12 81 117/72 06/02/19 12:08 82 100 06/02/19 12:06 72 90 06/02/19 12:05 121/71 H 06/02/19 12:03 79 100 06/02/19 12:00 76 123/77 H 06/02/19 11:58 69 100 06/02/19 11:51 69 122/74 H 06/02/19 11:48 98.2 F 06/02/19 10:20 98.2 F 06/02/19 10:19 77 122/72 H
[2019-06-02] MEDS: Oxytocin 30 units/NS 500 ml 30 UNITS/500 ML IV.SOLN 334 UNITS IV (15:17)
--- NOTE | 2019-06-02 15:41 | OP.PCM_ITS ---
Problem List (1) 39 weeks gestation of Status: Acute Vaginal Delivery Maternal Presentation: Elective Induction Method of Induction: Pitocin Amniotic Membrane Rupture Type: Artificial Rupture of Membrane time: 0900 Amniotic Fluid Description: Clear Final STEPHANI: 06/06/19 Final STEPHANI Source: US <20 weeks Gestational age: 39 Weeks and 3 Days Date of Procedure: 06/02/19 Pre-Operative Diagnosis: Labor Post-Operative Diagnosis: S/P Surgery/ Procedure Performed: Spontaneous Vaginal Delivery Type of Anesthesia: Epidural Description of Procedure: Patient was FD/+3 station when fiction and nonfiction prose writer was called. Upon my arrival, patient began to push and delivered head in OA with loose nuchal x1 reduced at perineum. Body easily delivered over with a loose body cord x1. The infant was placed on the maternal abdomen and further attended by nursery personnel with bulb suction and stimulation. The cord was doubly clamped then cut by FOB with CNM supervision at approximately 2 minutes of life. IV Pitocin started per protocol. With signs of placenta separation at 5 minutes, gentle cord traction given to deliver placenta which appeared intact on inspection with a circumvallate appearance and a marginal cord insertion. A first degree perineal laceration was noted on inspection, not needing any repair. Fundus firm and midline upon massage. EBL 100. Apgars 8/9. Sponge counts correct x 2. Presentation: Vertex, DAMARI Placental Delivery Description: Spontaneous Placenta Disposition: [facility] Cord Vessel Description: 3 Vessels Cord Entanglement: Around neck x 1, loose - and body Drain: Mejia to straight drain Estimated Blood Loss: 100 Infant A gender: Male (1 minute): 8 (5 minute): 9 Episiotomy Description: None Laceration: Perineal Extension/lac, 1st degree Medications given after delivery: IV Pitocin
[2019-06-02] MEDS: Ibuprofen 600 MG Tablet PO (19:38)
[2019-06-02] MEDS: Acetaminophen 500 MG Tablet 1000 MG PO (23:22)
[2019-06-03] MEDS: Ibuprofen 600 MG Tablet PO ×3 (02:59→21:12)
[2019-06-03 03:25] VITALS: BP 106/63; PULSE 77; RESP 16; TEMP 36.9
[2019-06-03] MEDS: Acetaminophen 500 MG Tablet 1000 MG PO ×2 (06:54→22:27)
[2019-06-03 08:00] VITALS: BP 101/53; PULSE 83; RESP 14; TEMP 36.8
--- NOTE | 2019-06-03 08:42 | DCINST_ITS ---
Discharge Diet: No Restrictions Discharge Activity: Return to Normal Activity, May not drive while taking narcotic pain medications., May Shower May resume sexual activity in: 4-6 weeks Additional Activity Instructions:: Nothing in the vagina for 4-6 weeks. You may return to work/school in 6 weeks. Call your doctor if your incision/area has: Continuous Slow Oozing, Sudden Increased Bleeding, Increased Pain/ Swelling, Increased Redness, Foul Smelling Discharge Additional Instructions: If you experience any of the following, contact your healthcare provider. * Bleeding that soaks a pad every hour for 2 hours * Fever 100.4 or higher * Unrelieved incision or abdominal pain * Swelling, redness, discharge or bleeding from your incision or episiotomy site * Your incision begins to separate * Problems urinating (including inability to urinate or burning while urinating). * Visual changes * Severe headache * Flu-like symptoms * Pain or redness in one of both of your breasts * Pain, warmth, tenderness or swelling in your legs, especially the calf area * Frequent nausea and vomiting * Symptoms of depression or anxiety If you experience any of the following, call 911 or go to the nearest Emergency Room. * Chest pain * Problems breathing * Seizure activity * Partial or complete paralysis of a body part, slurred speech, weakness or drooping of the face, or a sudden inability to walk or hold your balance Allergies/Adverse Reactions: Allergies No Known Allergies Allergy (Verified 06/01/19 07:26) Medications to take at Discharge Vits [Prenatabs FA ] 1 tablet PO DAILY 04/30/17 Please Follow Up With: Chantell Muniz CNM When: Call to make an appointment with your doctor in 6 weeks. If you have signs of depression to call earlier. Primary Care Physician: Hailey Ny PA-C [Primary Care Provider] - Test Results: Test results from this visit will be discussed in further detail at your follow- up appointment, if applicable.
--- NOTE | 2019-06-03 08:44 | PCM.PN.BLA ---
Progress Note S: Feeling well with cramps while . Rates cramps 3/10. Denies heavy bleeding. O: VSS male Fundus u/2, firm, midline Lochia rubra scant A: Normal involution and course well P: Discharge home today after sons 24 hour testing and circumcision Reviewed to call for a 6wk PP follow up or sooner if s/s of depression Plans NFP while STROKE Vital Signs/Narrative: Vital Signs Temp Pulse Resp BP 06/03/19 08:00 98.3 F 83 14 101/53 L
[2019-06-03 12:51] VITALS: BP 127/63; PULSE 84; RESP 14; TEMP 36.8
[2019-06-03 20:58] VITALS: BP 128/62; PULSE 82; RESP 16; TEMP 37.1
[2019-06-04 02:05] VITALS: BP 109/69; PULSE 80; RESP 14; TEMP 36.8
[2019-06-04 08:00] VITALS: BP 124/85; PULSE 84; RESP 18; TEMP 36.8
--- NOTE | 2019-06-04 10:05 | PN.OBGYN_ITS ---
Patient Problems: Active and Suspected Problems 39 weeks gestation of (Acute) Subjective: Patient without complaints. Breast-feeding going well. Ready to go home today. - Physical Exam Vitals/I&O's: Vital Signs Temp Pulse Resp BP Pulse Ox 98.3 F 84 18 124/85 H 97 06/04/19 08:00 06/04/19 08:00 06/04/19 08:00 06/04/19 08:00 06/02/19 15:24 Oxygen Delivery Method Room Air Weight: 179 lb 0.246 oz Body Mass Index (BMI) 31.7 Intake and Output for Last 24 Hours 06/02/19 06/03/19 06/04/19 23:59 23:59 23:59 Intake Total 3721.88 / 3721.88 Output Total 3175 / 3175 Balance 546.88 / 546.88 Current Medications Acetaminophen (Tylenol) 1,000 mg PO Q8H PRN PRN PRN Reason: Pain Score 1-3/10 Last Admin: 06/03/19 22:27 Dose: 1,000 mg Documented by: Bisacodyl (Dulcolax) 10 mg RECTAL UD PRN PRN Reason: If no BM Dibucaine (Dibucaine) 1 applic TOPICAL TID PRN PRN; Protocol PRN Reason: Discomfort Hydrocortisone (Hytone) 1 applic TOPICAL TID PRN PRN; Protocol PRN Reason: Discomfort Ibuprofen (Motrin) 600 mg PO Q6H PRN PRN PRN Reason: Pain Score 1-3/10 Last Admin: 06/03/19 21:12 Dose: 600 mg Documented by: Methylergonovine Maleate (Methergine) 0.2 mg IM X1 PRN PRN Reason: Excess bleeding/uterine atony Ondansetron HCl (Zofran) 4 mg IV Q4H PRN PRN PRN Reason: Nausea Oxycodone HCl (Oxyir) 5 - 10 mg PO Q4H PRN PRN PRN Reason: Pain Score 4-10/10 Senna/Docusate Sodium (Senokot-S, [place]-Colace) 1 - 2 tablet PO DAILY PRN PRN PRN Reason: Constipation Simethicone (Mylicon) 80 mg PO PCHS PRN PRN Reason: Indigestion/Stomach pain Sodium Chloride () 5 - 15 ml IV UD PRN PRN Reason: SALINE FLUSH Zolpidem Tartrate (Ambien (Generic)) 5 mg PO QHS PRN PRN PRN Reason: Insomnia Medical Necessity - Tobacco Use Smoking Status: Former smoker Assessment/Plan All Active Problems Pre-eclampsia added to pre-existing hypertension (Acute) 39 weeks gestation of (Acute) Doing well status post routine spontaneous vaginal delivery on day #2. Will discharge to home with routine instructions.
--- NOTE | 2019-06-04 10:07 | PCM.DC.BLA ---
Discharge Summary Date of Admission: 06/01/19 Date of Discharge: 06/04/19 Summary: Admission diagnosis: Term intrauterine for elective induction Discharge diagnosis: Term intrauterine for elective induction Procedure: Spontaneous vaginal delivery on 06/02/2019 HPI: Uneventful care. PE: Unremarkable. Hospital Course: The patient is a 23 year old G 2 P 1 who presented to [facility] at 39+ weeks gestation. She progressed and delivered a viable infant and it was felt that she was ready for discharge on post day #2. Homegoing Instruction: She was instructed not to drive for several days , not to put anything in the vagina for 4 weeks, not to lift >25 lbs for 6 weeks and to call the office for an appointment in 6 weeks. Discharge Medications: She was instructed to continue vitamins and iron for 6 weeks or as long as she has breast-feeding. We will further discuss control at her 6-week visit. Patient Problems: Active and Suspected Problems 39 weeks gestation of (Acute) - Physical Exam Vitals/I&O's: Vital Signs Temp Pulse Resp BP Pulse Ox 98.3 F 84 18 124/85 H 97 06/04/19 08:00 06/04/19 08:00 06/04/19 08:00 06/04/19 08:00 06/02/19 15:24 Oxygen Delivery Method Room Air Weight: 179 lb 0.246 oz Body Mass Index (BMI) 31.7 Intake and Output for Last 24 Hours 06/02/19 06/03/19 06/04/19 23:59 23:59 23:59 Intake Total 3721.88 / 3721.88 Output Total 3175 / 3175 Balance 546.88 / 546.88 Current Medications Acetaminophen (Tylenol) 1,000 mg PO Q8H PRN PRN PRN Reason: Pain Score 1-3/10 Last Admin: 06/03/19 22:27 Dose: 1,000 mg Documented by: Bisacodyl (Dulcolax) 10 mg RECTAL UD PRN PRN Reason: If no BM Dibucaine (Dibucaine) 1 applic TOPICAL TID PRN PRN; Protocol PRN Reason: Discomfort Hydrocortisone (Hytone) 1 applic TOPICAL TID PRN PRN; Protocol PRN Reason: Discomfort Ibuprofen (Motrin) 600 mg PO Q6H PRN PRN PRN Reason: Pain Score 1-3/10 Last Admin: 06/03/19 21:12 Dose: 600 mg Documented by: Methylergonovine Maleate (Methergine) 0.2 mg IM X1 PRN PRN Reason: Excess bleeding/uterine atony Ondansetron HCl (Zofran) 4 mg IV Q4H PRN PRN PRN Reason: Nausea Oxycodone HCl (Oxyir) 5 - 10 mg PO Q4H PRN PRN PRN Reason: Pain Score 4-10/10 Senna/Docusate Sodium (Senokot-S, [place]-Colace) 1 - 2 tablet PO DAILY PRN PRN PRN Reason: Constipation Simethicone (Mylicon) 80 mg PO PCHS PRN PRN Reason: Indigestion/Stomach pain Sodium Chloride () 5 - 15 ml IV UD PRN PRN Reason: SALINE FLUSH Zolpidem Tartrate (Ambien (Generic)) 5 mg PO QHS PRN PRN PRN Reason: Insomnia
== END 2019-06-04 10:35 | disposition home or self-care (01) | DRG 807 ==
PROVIDERS: Obstetrics & Gynecology; Admitting Provider Obstetrics & Gynecology; PCP Family Medicine; Referring Provider Obstetrics & Gynecology; Visit Provider Obstetrics & Gynecology
DX: O11.4 Pre-existing hypertension with pre-eclampsia, complicating childbirth (principal); Z37.0 Single live birth; Z3A.39 39 weeks gestation of pregnancy; Z87.891 Personal history of nicotine dependence; O69.81X0 Labor and delivery complicated by cord around neck, without compression, not applicable or unspecified; O70.0 First degree perineal laceration during delivery
CPT/HCPCS: 59025; 59050; 85025; 86850; 86900; 86901; 99218; J7120; G0378

== ENCOUNTER → 2019-07-21 | Outpatient (CLI) | payer BC, SELFPAY ==
[2019-06-01 07:28] VITALS: BMI 31.7
[2019-07-23 00:42] LABS: HPV APTIMA, High Risk Positive (Negative)
[2019-07-26 16:14] LABS: HPV Reflexed? YES, CHARGE PATIENT
== END | disposition home or self-care (01) ==
LOC: LABSPEC 08:50
PROVIDERS: PCP Family Medicine; Referring Provider Obstetrics & Gynecology; Visit Provider Obstetrics & Gynecology
DX: Z12.4 Encounter for screening for malignant neoplasm of cervix (principal)
CPT/HCPCS: 87624; 88175; G0145

== ENCOUNTER → 2020-07-25 | Outpatient (CLI) | payer BC, SELFPAY ==
[2019-06-01 07:28] VITALS: BMI 31.7
[2020-07-31 12:29] LABS: HPV APTIMA, High Risk Positive (Negative)
[2020-07-31 12:52] LABS: HPV Reflexed? YES, CHARGE PATIENT
== END | disposition home or self-care (01) ==
LOC: LABSPEC 07-26 10:56
PROVIDERS: PCP Family Medicine; Visit Provider Obstetrics & Gynecology
DX: Z12.4 Encounter for screening for malignant neoplasm of cervix (principal)
CPT/HCPCS: 87624; 88175; G0145

== ENCOUNTER → 2020-09-06 | Outpatient (CLI) | payer OTHER, SELFPAY ==
[2019-06-01 07:28] VITALS: BMI 31.7
--- NOTE | 2020-09-06 | IMM_PTH ---
PATIENT: ALONZO CHAIREZ LOC: [facility] U#:[id number] AGE/SX: ROOM: RE09/06/[address]: Dr. Cooper Greer MD : 1995 BED: DIS: 09/06/2020 SPEC #: [id number] RECD: 09/08/20 12:47 STATUS: LINH REQ #: [id number] WILMER: 09/06/20 00:[address]: Cooper Greer DEPT: IMMUNOHISTOCHEMISTRY RECD BY: Meena Shafer ENTERED: 09/08/20 12:49 SP TYPE: IMMUNO OTHR DR: Hailey Ny PA-C Tissues: A - Uterine cervix, NOS Procedures: p16 (initial) KI-67 (add) PHYSICIAN & INSTITUTION [place] [id number] SPECIMEN INFORMATION: Tissue Source: A ? Cervical biopsy Clinical Info: Positive HPV Specimen Number: [id number] CPT code: 29456, 03153 METHODOLOGY: Deparaffinized sections of prefer/formalin-fixed tissue or PAP/DQ stained slides are incubated with monoclonal/polyclonal antibodies/oligonucleotide probes. Localization is made via biotin free immunoperoxidase method. Appropriate controls are performed and reacted as expected. Results on target cell population are indicated in the following table: RESULTS: ANTIBODY / CLONE RESULT Block A P16 (E6H4) positive, focal, patchy Ki-67 (30-9) positive, low These tests were developed and their performance characteristics determined by [facility]. They may not have been cleared or approved by the U.[place]. Food and Drug Administration. The FDA has determined that such clearance or approval is not necessary. The above immunohistochemical/dualISH markers are ordered and reviewed by the Pathologist. INTERPRETATION: A. Cervical biopsy: Focal HPV change present. AM:patti 09/11/2020
--- NOTE | 2020-09-06 16:30 | CER_PTH ---
PATIENT: ALONZO CHAIREZ LOC: [facility] U#:[id number] AGE/SX: ROOM: RE09/06/[address]: Dr. Cooper Greer MD : 1995 BED: DIS: 09/06/2020 SPEC #: [id number] RECD: 09/06/20 17:02 STATUS: LINH REYesi #: [id number] WILMER: 09/06/20 16:[address]: Cooper Greer DEPT: SURGICAL PATHOLOGY RECD BY: Tiki Wilson ENTERED: 09/07/20 08:40 SP TYPE: CERV OTHR DR: Hailey Ny PA-C Tissues: A - Uterine cervix, NOS B - Endocervical Procedures: Surgery Specimen Level IV HEADER OPERATION: Colposcopy PRE-OP DIAGNOSIS: Positive HPV TISSUE SUBMITTED: A ? Cervical biopsy four quad, B - ECC MICROSCOPIC DIAGNOSIS A. Cervix, biopsy: Focal HPV change present. Squamous metaplasia and chronic inflammation. See comment. B. Endocervix, curettings: Strips of benign superficial endocervix. No evidence of dysplasia. AM:patti 09/08/2020 COMMENT A. Results from immunohistochemistry ([id number]) for surrogate HPV marker (p16) will be reported separately. Case has been reviewed in consultation with Dr. Ma who concurs with the above diagnosis. IDC:MALINA MICROSCOPIC DESCRIPTION Slides are reviewed. GROSS DESCRIPTION A - Received in fixative is one container labeled with the patient's name and designated four quadrant cervical biopsy. The specimen consists of multiple irregular fragments of light fritz soft tissue that in aggregate measure 1 x 0.3 x 0.1 cm. The specimen is totally submitted in one cassette. B - Received in fixative is one container labeled with the patient's name and designated ECC. The specimen consists of multiple fragments of hemorrhagic mucoid tissue that in aggregate measure 1 x 1 x 0.2 cm. The specimen is totally submitted in one cassette. / MALINA:patti 09/07/20 TC:3 CPT: 96500 x2
== END | disposition home or self-care (01) ==
PROVIDERS: PCP Family Medicine; Visit Provider Obstetrics & Gynecology
DX: R87.810 Cervical high risk human papillomavirus (HPV) DNA test positive (principal)
CPT/HCPCS: 88305; 88341; 88342

== ENCOUNTER 2021-06-27 13:35 | Outpatient (CLI) | payer OTHER, SELFPAY ==
[2021-06-27 15:37] LABS: Absolute Lymphocyte Count 1.54 X10^3/uL (0.83-4.51); Absolute Neutrophil Count 6.2 X10^3/uL (2.0-7.7); Basophil# 0.02 X10^3/uL; Basophil% 0.2 % (0-1); Eosinophil# 0.12 X10^3/uL; Eosinophils% 1.4 % (0-5); Hematocrit 37.8 % (37-47); Hemoglobin 12.1 g/dL (12.0-15.0); Lymphocyte # 1.54 X10^3/ul (0.83-4.51); Lymphocyte % 18.1 % (19-41); Mean Corpuscular Hgb 27.6 pg (27.0-32.0); Mean Corpuscular Volume 86.1 fL (81-99); Mean Platelet Vol. 10.3 fl (6.2-12.0); Monocyte# 0.57 X10^3/uL; Monocyte% 6.7 % (0-10); NRBC Flagged by Analyzer 0 % (0-5); Neutrophil # 6.23 X10^3/uL (2.7-7.7); Neutrophil % 73.2 % (47-70); Platelet Count 275 K/mm3 (150-450); RBC Distribution Width CV 13.1 % (11.6-14.6); RBC Distribution Width SD 41.1 fl (35.1-43.9); Red Blood Count 4.39 M/mm3 (4.2-5.4); White Blood Count 8.5 K/mm3 (4.4-11.0)
[2021-06-27 15:44] LABS: Color, Urine Yellow (Yellow); Glucose, Dipstick Normal (Normal); Ketone-Dipstick Negative (Negative); Leukocyte Esterase-Dipstick 25 /ul (Negative); Nitrite-Dipstick Negative (Negative); Occult Blood-Urine Negative /ul (Negative); Protein-Dipstick Negative (Negative); Specific Gravity, Urine 1.025 (1.002-1.030); Urine Bilirubin Dipstick Negative (Negative); Urine Clarity Clear (Clear); Urine Urobilinogen Normal (Normal)
[2021-06-27 15:56] LABS: Thyroid Stim Hormone (TSH) 1.22 uIU/mL (0.358-3.74)
[2021-06-27 16:19] LABS: Amphetamine Urine VISTA NEGATIVE (<1000 ng/mL); Barbiturate Urine VISTA NEGATIVE (< 200 ng/mL); Benzodiazepine Urine VISTA NEGATIVE (< 200 ng/mL); Cocaine Urine VISTA NEGATIVE (< 300 ng/mL); Ecstacy Urine VISTA NEGATIVE (< 500 ng/mL); Methadone Urine VISTA NEGATIVE (< 300 ng/mL); PCP Urine VISTA NEGATIVE (< 25 ng/mL); THC Urine VISTA NEGATIVE (< 50 ng/mL); Vista UDS pH Range 4
[2021-06-27 16:32] LABS: HIV - WCH Non-Reactive (Nonreactive); Hepatitis B Surface Antigen Non-Reactive (Nonreactive); Hepatitis C Antibody Non-Reactive (Nonreactive); Rubella IgG Reactive (Nonreactive); Syphilis Antibodies Non-reactive
[2021-06-29 22:08] LABS: Chlamydia By Nucleic Acid AMP Negative (Negative)
[2021-06-29 22:40] LABS: Gonococcus By Nucleic Acid AMP Negative (Negative)
[2021-07-04 12:35] LABS: HPV APTIMA, High Risk Negative (Negative)
[2021-07-04 12:36] LABS: HPV Reflexed? YES, CHARGE PATIENT
== END 2021-06-27 23:59 | disposition home or self-care (01) ==
LOC: WOBLAB 13:38
PROVIDERS: PCP Family Medicine; Visit Provider Obstetrics & Gynecology
DX: Z34.81 Encounter for supervision of other normal pregnancy, first trimester (principal); Z11.3 Encounter for screening for infections with a predominantly sexual mode of transmission
CPT/HCPCS: 36415; 80307; 81002; 84443; 85025; 86703; 86762; 86780; 86803; 87086; 87340; 87491; 87591; 87624; 88175; G0145

== ENCOUNTER → 2021-11-09 | Outpatient (CLI) | payer OTHER, SELFPAY ==
[2021-11-09 12:15] LABS: Basophil# 0.05 X10^3/uL; Basophil% 0.6 % (0-1); Eosinophil# 0.07 X10^3/uL; Eosinophils% 0.8 % (0-5); Hematocrit 35.7 % (37-47); Hemoglobin 11.7 g/dL (12.0-15.0); Mean Corp Hgb Conc 32.8 g/dL (32-36); Mean Corpuscular Hgb 28.3 pg (27.0-32.0); Mean Corpuscular Volume 86.4 fL (81-99); Mean Platelet Vol. 10.1 fl (6.2-12.0); Monocyte# 0.49 X10^3/uL; Monocyte% 5.8 % (0-10); NRBC Flagged by Analyzer 0 % (0-5); Neutrophil # 6.04 X10^3/uL (2.7-7.7); Neutrophil % 71.5 % (47-70); Platelet Count 211 K/mm3 (150-450); RBC Distribution Width CV 12.7 % (11.6-14.6); RBC Distribution Width SD 40.2 fl (35.1-43.9); Red Blood Count 4.13 M/mm3 (4.2-5.4); White Blood Count 8.4 K/mm3 (4.4-11.0)
[2021-11-09 12:26] LABS: Glucose Challenge Gest 1H 50g 102 mg/dL (70-140)
== END | disposition home or self-care (01) ==
LOC: WOBLAB 11:09
PROVIDERS: PCP Family Medicine; Visit Provider Obstetrics & Gynecology
DX: Z34.82 Encounter for supervision of other normal pregnancy, second trimester (principal)
CPT/HCPCS: 36415; 82950; 85025

== ENCOUNTER → 2022-01-07 | Outpatient (CLI) | payer OTHER, SELFPAY ==
[2022-01-07 12:28] LABS: Absolute Lymphocyte Count 1.86 X10^3/uL (0.83-4.51); Absolute Neutrophil Count 6.2 X10^3/uL (2.0-7.7); Basophil# 0.04 X10^3/uL; Basophil% 0.4 % (0-1); Eosinophils% 1.1 % (0-5); Hematocrit 34.2 % (37-47); Hemoglobin 10.8 g/dL (12.0-15.0); Lymphocyte # 1.86 X10^3/ul (0.83-4.51); Lymphocyte % 20.3 % (19-41); Mean Corp Hgb Conc 31.6 g/dL (32-36); Mean Corpuscular Volume 82.4 fL (81-99); Mean Platelet Vol. 10.7 fl (6.2-12.0); Monocyte# 0.79 X10^3/uL; Monocyte% 8.6 % (0-10); NRBC Flagged by Analyzer 0 % (0-5); Neutrophil # 6.18 X10^3/uL (2.7-7.7); Neutrophil % 67.6 % (47-70); Platelet Count 248 K/mm3 (150-450); RBC Distribution Width CV 13.9 % (11.6-14.6); RBC Distribution Width SD 41.1 fl (35.1-43.9); Red Blood Count 4.15 M/mm3 (4.2-5.4); White Blood Count 9.2 K/mm3 (4.4-11.0)
[2022-01-07 13:05] LABS: Group B Strep DNA By PCR POSITIVE (Negative); Probe Check PASS
[2022-01-07 13:09] LABS: ALB/GLOB Ratio 0.7 RATIO (0.9-2.4); AST(SGOT) 18 U/L (15-37); Alanine Aminotransfer ALT/SGPT 16 U/L (13-56); Albumin, Serum 2.6 g/dL (3.2-5.0); Alkaline Phosphatase 180 U/L (45-117); Anion Gap 6 (5-15); BUN 11 mg/dL (7-18); Calcium,Total 8.8 mg/dL (8.5-10.1); Chloride 107 mmol/L (98-107); Creatinine, Serum 0.58 mg/dL (0.55-1.02); EST Glomerular Filtration Rate 132 mL/min (>60); Est Glom Filt Rate - Afr Amer 159 mL/min (>60); Globulin 3.5 g/dL (2.2-4.2); Glucose 85 mg/dL (74-106); LDH 173 U/L (84-246); Potassium 3.7 mmol/L (3.5-5.1); Protein, Total 6.1 g/dL (6.4-8.2); Sodium Level 137 mmol/L (136-145)
[2022-01-07 13:55] LABS: Protein, Urine (Random) 7.3 mg/dL (<11.9); Protein:Creat Ratio 253 mg/g CRE (0-200)
== END | disposition home or self-care (01) ==
LOC: WOBLAB 11:28
PROVIDERS: PCP Family Medicine; Visit Provider Student in an Organized Health Care Education/Training Program
DX: O13.4 Gestational [pregnancy-induced] hypertension without significant proteinuria, complicating childbirth (principal)
CPT/HCPCS: 36415; 80053; 82570; 83615; 84156; 85025; 87077; 87086; 87088; 87186; 87653

== ENCOUNTER 2022-01-22 11:00 | Inpatient (IN) | payer OTHER, SELFPAY ==
[2022-01-22] VITALS (9 sets, daily range): BP systolic 116–129; BP diastolic 63–79; PULSE 30–94; TEMP 36.3–36.6; O2SAT 69–99; BMI 33.7
[2022-01-22] MEDS: Lactated Ringers 1,000 ML 50 ML IV (11:40)
[2022-01-22 11:59] LABS: Absolute Lymphocyte Count 1.65 X10^3/uL (0.83-4.51); Absolute Neutrophil Count 8.6 X10^3/uL (2.0-7.7); Basophil# 0.03 X10^3/uL; Basophil% 0.3 % (0-1); Eosinophil# 0.09 X10^3/uL; Eosinophils% 0.8 % (0-5); Hematocrit 35.9 % (37-47); Hemoglobin 11.5 g/dL (12.0-15.0); Lymphocyte # 1.65 X10^3/ul (0.83-4.51); Lymphocyte % 14.6 % (19-41); Mean Corpuscular Hgb 25.9 pg (27.0-32.0); Mean Corpuscular Volume 80.9 fL (81-99); Mean Platelet Vol. 10.5 fl (6.2-12.0); Monocyte# 0.81 X10^3/uL; Monocyte% 7.2 % (0-10); NRBC Flagged by Analyzer 0 % (0-5); Neutrophil # 8.58 X10^3/uL (2.7-7.7); Neutrophil % 76.1 % (47-70); Platelet Count 275 K/mm3 (150-450); RBC Distribution Width CV 14.6 % (11.6-14.6); RBC Distribution Width SD 42.6 fl (35.1-43.9); Red Blood Count 4.44 M/mm3 (4.2-5.4); White Blood Count 11.3 K/mm3 (4.4-11.0)
[2022-01-22] MEDS: miSOPROStol 25 MCG TABLET PO ×3 (11:59→22:00)
[2022-01-22 12:15] LABS: ALB/GLOB Ratio 0.7 RATIO (0.9-2.4); AST(SGOT) 16 U/L (15-37); Alanine Aminotransfer ALT/SGPT 18 U/L (13-56); Albumin, Serum 2.6 g/dL (3.2-5.0); Alkaline Phosphatase 234 U/L (45-117); Anion Gap 8 (5-15); BUN 8 mg/dL (7-18); BUN/Creat Ratio 14.1 RATIO (10-20); Calcium,Total 8.9 mg/dL (8.5-10.1); Chloride 110 mmol/L (98-107); Creatinine, Serum 0.57 mg/dL (0.55-1.02); EST Glomerular Filtration Rate 135 mL/min (>60); Est Glom Filt Rate - Afr Amer 163 mL/min (>60); Estimated Creatinine Clearance 121.55 ml/min; Globulin 3.9 g/dL (2.2-4.2); Glucose 83 mg/dL (74-106); LDH 160 U/L (84-246); Potassium 3.7 mmol/L (3.5-5.1); Protein, Total 6.5 g/dL (6.4-8.2); Sodium Level 140 mmol/L (136-145)
[2022-01-22] MEDS: 0.9% Saline Lock 10 ML Syringe IV ×3 (13:09→17:31)
[2022-01-22 13:59] LABS: Bacteria 0 SEEN /hpf (None Seen); Mucous, Urine 0 SEEN /hpf (<or=2+); Red Blood Cells-Urine 0 SEEN /hpf (0-5)
[2022-01-22 14:14] LABS: Color, Urine Yellow (Yellow); Glucose, Dipstick Normal (Normal); Ketone-Dipstick Negative (Negative); Leukocyte Esterase-Dipstick 500 /ul (Negative); Nitrite-Dipstick Negative (Negative); Occult Blood-Urine Negative /ul (Negative); Protein-Dipstick Negative (Negative); Specific Gravity, Urine 1.015 (1.002-1.030); Urine Bilirubin Dipstick Negative (Negative); Urine Clarity Sl. Cloudy (Clear); Urine Urobilinogen Normal (Normal); Urine pH 6.5 (5.0 - 8.0)
[2022-01-22 14:16] LABS: Protein, Urine (Random) 17.8 mg/dL (<11.9); Protein:Creat Ratio 357 mg/g CRE (0-200)
[2022-01-22 14:31] LABS: Squamous Epithelial Cells - UA 0-5 SEEN /hpf (5-10); White Blood Cells 25-50 SEEN /hpf (0-5)
[2022-01-22] MEDS: Penicillin G 3,000,000 Units 50 ML 100 UNITS IV ×2 (16:37→21:42)
--- NOTE | 2022-01-22 17:04 | PCM.HP.BLA ---
History and Physical Date of Admission: 01/22/22 HPI: G3 P2 at 37/6 weeks, STEPHANI 02/06/2022 by LMP, admitted for induction of labor for preeclampsia without severe features. Diagnosed based on elevated blood pressures in office and proteinuria. Denies headache or vision changes, chest pain or shortness of breath, nausea or vomiting, diarrhea constipation, fevers or chills. Reports movement. Denies regular contractions, leaking of fluid, vaginal bleeding. complicated by: History of macrosomia, preeclampsia [employer]ACH[employer] history G1: 39-week G2: 39-week Medical history: Denies Medications: vitamin Surgical history: Denies Allergies: No known drug allergies Family history: Negative for blood clots or bleeding disorder Social history: Former tobacco user, denies alcohol or drug use Review of system: Negative otherwise stated above Physical exam Blood pressure 116/67, heart rate 77 General: No acute distress HEENT: Normocephalic/atraumatic, PERRLA Cardiorespiratory: No increased effort Abdomen: Soft, nontender, no right upper quadrant pain Extremities: Minimal edema Musculoskeletal: Strength out of 5 throughout extremities Neurologic: Cranial nerves II through XII grossly intact, no focal deficits, patellar reflexes 2/4, no clonus panel O+ GBS positive Rubella immune HIV/hepatitis B/hepatitis C all negative Syphilis negative Gonorrhea/chlamydia negative heart rate:125/mod frank/+accel/no decel [place]: q3-5 Assessment/plan: G3, P2 at 37/6 weeks, STEPHANI 02/06/2022 by LMP, admitted for induction of labor for preeclampsia without severe features. complicated by: History of macrosomia, preeclampsia. ?Diagnosis of preeclampsia without severe features based on elevated blood pressures and proteinuria. Patient is asymptomatic. ?History of macrosomia. EFW at 35 weeks 94th percentile. ?Induction of labor with Cytotec. ?Category 1. Continue induction of labor. ?GBS positive start penicillin.
[2022-01-23] VITALS (75 sets, daily range): BP systolic 83–144; BP diastolic 44–83; PULSE 70–117; RESP 16–18; TEMP 36.1–37.1; O2SAT 87–100
[2022-01-23] MEDS: Penicillin G 3,000,000 Units 50 ML 100 UNITS IV ×4 (01:24→13:30)
[2022-01-23] MEDS: Oxytocin 15 Units/NS 250ml 15 UNITS/250 ML IV.SOLN 2 UNITS IV (02:26)
--- NOTE | 2022-01-23 07:06 | PCM.PN.OB ---
Subjective Subjective Mild discomfort with contractions. Denies headache, vision change, chest pain, shortness of breath, nausea vomit, right upper quadrant pain. Objective Data Objective Data Vital Signs: Vital Signs Temp Pulse BP Pulse Ox 97.5 F L 70 124/78 H 98 01/23/22 05:52 01/23/22 05:53 01/23/22 05:53 01/23/22 05:52 Weight: 190 lb 11.198 oz Body Mass Index (BMI) 33.7 Intake & Output: Intake and Output for Last 24 Hours 01/21/22 01/22/22 01/23/22 23:59 23:59 23:59 Intake Total 210.83 / 210.83 123.80 / 123.80 Balance 210.83 / 210.83 123.80 / 123.80 Lab / Micro Data Result Diagrams: 01/22/22 11:40 01/22/22 11:40 Labs: Laboratory Results - last 24 hr 01/22/22 11:40: WBC 11.3 H, RBC 4.44, Hgb 11.5 L, Hct 35.9 L, MCV 80.9 L, MCH 25.9 L, MCHC 32.0, RDW Std Deviation 42.6, RDW Coeff of Angel 14.6, Plt Count 275, MPV 10.5, Immature Gran % (Auto) 1.000 H, Neut % (Auto) 76.1 H, Lymph % (Auto) 14.6 L, Pershing % (Auto) 7.2, Eos % (Auto) 0.8, Baso % (Auto) 0.3, Absolute Neuts (auto) 8.6 H, Absolute Lymphs (auto) 1.65, Nucleated RBC % 0 01/22/22 11:40: Blood Type O POSITIVE, Antibody Screen NEGATIVE 01/22/22 11:40: Sodium 140, Potassium 3.7, Chloride 110 H, Carbon Dioxide 22.0, Anion Gap 8, BUN 8, Creatinine 0.57, Estim Creat Clear Calc 121.55, Est GFR (MDRD) Af Amer 163, Est GFR (MDRD) Non-Af 135, BUN/Creatinine Ratio 14.1, Glucose 83, Calcium 8.9, Total Bilirubin 0.30, AST 16, ALT 18, Alkaline Phosphatase 234 H, Lactate Dehydrogenase 160, Total Protein 6.5, Albumin 2.6 L, Globulin 3.9, Albumin/Globulin Ratio 0.7 L 01/22/22 13:50: Urine Color Yellow, Urine Clarity Sl. Cloudy, Urine pH 6.5, Ur Specific [place] 1.015, Urine Protein Negative, Urine Glucose (UA) Normal, Urine Ketones Negative, Urine Occult Blood Negative, Urine Nitrite Negative, Urine Bilirubin Negative, Urine Urobilinogen Normal, Ur Leukocyte Esterase 500 H, Urine RBC 0 SEEN, Urine WBC 25-50 SEEN, Ur Squamous Epith Cells 0-5 SEEN, Urine Bacteria 0 SEEN, Urine Mucus 0 SEEN 01/22/22 13:50: U Random Total Protein 17.8 H, Urine Creatinine 49.80, Protein/Creatinin Ratio 357 H Micro: Microbiology 01/22/22 11:35 Nasal Secretion SARS-CoV-2 Antigen (Rapid) - Final Physical Exam Const alert, oriented x3, average body habitus, healthy appearing and well nourished HEENT normocephalic and moist oral mucous membranes Eyes PERRL Neck full ROM Resp normal respiratory effort, no retractions and no use of accessory muscles GI GI Narrative: Soft, nontender, gravid Narrative: Bedside ultrasound cephalic. Cervical exam: /. AROM clear fluid. Extremity normal to inspection, full ROM and no clubbing, cyanosis or edema Neuro moves all extremities and no focal motor deficits Psych mental status grossly normal, affect normal, speech normal and activity/motor behavior normal Assessment & Plan (1) : PLAN: Patient seen and examined. Bedside ultrasound confirms cephalic. AROM clear fluid. Continue to titrate Pitocin. We will continue to monitor blood pressures and treat appropriately
[2022-01-23] MEDS: LACTATED RINGERS 500 ML 999 ML IV ×2 (10:00→10:51)
[2022-01-23] MEDS: fentaNYL-bupivacaine (epidural) 100 ML BAG EPIDURAL ×2 (10:59→15:14)
[2022-01-23] MEDS: Ondansetron 4 MG/2 ML Vial IV (11:30)
[2022-01-23] MEDS: Lactated Ringers 1,000 ML 200 ML IV (12:22)
--- NOTE | 2022-01-23 16:52 | EX.PCM.OBRPT ---
Vaginal Delivery Findings Description of Procedure: Normal spontaneous vaginal delivery of a viable male , vertex DAMARI. Head and shoulders delivered with ease. Cord cut and clamped. Baby handed off to patient. Placenta delivered via cord traction and fundal massage. No lacerations noted. EBL 250 cc Apgars 8/9
[2022-01-23] MEDS: 0.9% Saline Lock 10 ML Syringe IV (18:00)
[2022-01-23] MEDS: Carboprost Tromethamine 250 MCG/ML Ampul IM (18:00)
[2022-01-23] MEDS: Ibuprofen 600 MG Tablet PO (21:10)
[2022-01-24] VITALS (10 sets, daily range): BP systolic 117–122; BP diastolic 63–75; PULSE 69–90; RESP 14–16; TEMP 36.3–36.9; O2SAT 97–99
[2022-01-24] MEDS: Acetaminophen 500 MG Tablet 1000 MG PO ×2 (02:42→13:56)
[2022-01-24] MEDS: Ibuprofen 600 MG Tablet PO ×3 (05:18→21:08)
[2022-01-24 05:39] LABS: Absolute Lymphocyte Count 2.49 X10^3/uL (0.83-4.51); Absolute Neutrophil Count 8.5 X10^3/uL (2.0-7.7); Basophil# 0.04 X10^3/uL; Basophil% 0.3 % (0-1); Eosinophil# 0.14 X10^3/uL; Eosinophils% 1.1 % (0-5); Hematocrit 31.4 % (37-47); Hemoglobin 10.4 g/dL (12.0-15.0); Lymphocyte # 2.49 X10^3/ul (0.83-4.51); Lymphocyte % 19.9 % (19-41); Mean Corp Hgb Conc 33.1 g/dL (32-36); Mean Corpuscular Hgb 26.7 pg (27.0-32.0); Mean Corpuscular Volume 80.5 fL (81-99); Mean Platelet Vol. 10.3 fl (6.2-12.0); Monocyte# 1.25 X10^3/uL; NRBC Flagged by Analyzer 0 % (0-5); Neutrophil # 8.49 X10^3/uL (2.7-7.7); Neutrophil % 67.9 % (47-70); Platelet Count 231 K/mm3 (150-450); RBC Distribution Width CV 14.8 % (11.6-14.6); RBC Distribution Width SD 43.2 fl (35.1-43.9); White Blood Count 12.5 K/mm3 (4.4-11.0)
[2022-01-24 06:02] LABS: ALB/GLOB Ratio 0.7 RATIO (0.9-2.4); AST(SGOT) 18 U/L (15-37); Alanine Aminotransfer ALT/SGPT 16 U/L (13-56); Albumin, Serum 2.1 g/dL (3.2-5.0); Alkaline Phosphatase 190 U/L (45-117); Anion Gap 8 (5-15); BUN 6 mg/dL (7-18); Calcium,Total 8.4 mg/dL (8.5-10.1); Chloride 109 mmol/L (98-107); Creatinine, Serum 0.54 mg/dL (0.55-1.02); EST Glomerular Filtration Rate 142 mL/min (>60); Est Glom Filt Rate - Afr Amer 171 mL/min (>60); Globulin 3.1 g/dL (2.2-4.2); Glucose 123 mg/dL (74-106); LDH 184 U/L (84-246); Potassium 3.6 mmol/L (3.5-5.1); Protein, Total 5.2 g/dL (6.4-8.2); Sodium Level 139 mmol/L (136-145)
--- NOTE | 2022-01-24 07:24 | PN.OBGYN_ITS ---
Subjective Subjective Feeling well. Lochia minimal. Breast-feeding going well. Objective Data Objective Data Vital Signs: Vital Signs Temp Pulse Resp BP Pulse Ox O2 Del Method 98.5 F 90 16 118/63 97 Room Air 01/24/22 04:23 01/24/22 04:23 01/24/22 04:23 01/24/22 04:23 01/24/22 04:23 01/24/22 04:23 Oxygen Delivery Method Room Air Weight: 86.5 kg Body Mass Index (BMI) 33.7 Intake & Output: Intake and Output for Last 24 Hours 01/22/22 01/23/22 01/24/22 23:59 23:59 23:59 Intake Total 210.83 / 210.83 4135.82 / 4135.82 Output Total 2425 / 2425 1450 / 1450 Balance 210.83 / 210.83 1710.82 / 1710.82 -1450 / -1450 Lab / Micro Data Result Diagrams: 01/24/22 05:25 01/24/22 05:25 Labs: Laboratory Results - last 24 hr 01/24/22 05:25: WBC 12.5 H, RBC 3.90 L, Hgb 10.4 L, Hct 31.4 L, MCV 80.5 L, MCH 26.7 L, MCHC 33.1, RDW Std Deviation 43.2, RDW Coeff of Angel 14.8 H, Plt Count 231, MPV 10.3, Immature Gran % (Auto) 0.800, Neut % (Auto) 67.9, Lymph % (Auto) 19.9, Mcdonough % (Auto) 10.0, Eos % (Auto) 1.1, Baso % (Auto) 0.3, Absolute Neuts (auto) 8.5 H, Absolute Lymphs (auto) 2.49, Nucleated RBC % 0 01/24/22 05:25: Sodium 139, Potassium 3.6, Chloride 109 H, Carbon Dioxide 22.0, Anion Gap 8, BUN 6 L, Creatinine 0.54 L, Estim Creat Clear Calc 128.30, Est GFR (MDRD) Af Amer 171, Est GFR (MDRD) Non-Af 142, BUN/Creatinine Ratio 11.0, Glucose 123 H, Calcium 8.4 L, Total Bilirubin 0.20, AST 18, ALT 16, Alkaline Phosphatase 190 H, Lactate Dehydrogenase 184, Total Protein 5.2 L, Albumin 2.1 L , Globulin 3.1, Albumin/Globulin Ratio 0.7 L Micro: Microbiology 01/22/22 13:50 Urine, Clean Catch Urine Culture - Preliminary Culture exhibits no growth. 01/22/22 11:35 Nasal Secretion SARS-CoV-2 Antigen (Rapid) - Final Physical Exam Const alert, oriented x3 and no apparent distress HEENT normocephalic Head and Scalp: atraumatic Neck full ROM Resp normal respiratory effort Cardio regular rate GI normal to inspection, nondistended, normoactive bowel sounds GI Narrative: Uterus 2 cm below umbilicus Back/Spine normal ROM Extremity normal to inspection Extremity Narrative: Minimal pedal edema Neuro no focal motor deficits and no sensory deficits noted Psych mental status grossly normal and affect normal Assessment & Plan (1) Vaginal delivery: PLAN: day 1 status post . Complicated by preeclampsia without severe features. Blood pressures have been well controlled during admission. We will plan discharge home tomorrow. Will need 1 week blood p ressure check in office. (2) Pre-eclampsia:
[2022-01-25] MEDS: Acetaminophen 500 MG Tablet 1000 MG PO (00:59)
[2022-01-25 01:03] VITALS: BP 131/75; PULSE 75; RESP 16; TEMP 36.6; O2SAT 97
[2022-01-25 01:05] VITALS: BP 131/75; PULSE 78
[2022-01-25] MEDS: Ibuprofen 600 MG Tablet PO (03:22)
--- NOTE | 2022-01-25 06:57 | PCM.DC.BLA ---
Discharge Summary Date of Admission: 01/22/22 Date of Discharge: 01/25/22 Summary: Patient arrived on 01/22/2022 for induction of labor with preeclampsia without severe features. Subsequently delivered vaginally on 01/23/2022. Monitor blood pressures . And discharged home on 01/25/2022. Meaningful Use Info Meaningful Use Diagnoses (Choose all that apply): None applicable Discharge Plan Admission Admit Date/Time: 01/22/22 11:00 Primary Reason for Your Visit: Induction of labor Attending Provider: Farhad Hernandez Primary Care Provider: Hailey Ny Instructions Additional Instructions / Restrictions: Regular diet. Weightbearing as tolerated. No intercourse for 4 to 6 weeks. Okay to shower. Call if fevers, chills, chest pain, shortness of breath, headache, visual changes. Follow-up 1 week for blood pressure check Discharge Orders/Prescriptions Prescriptions: No Action Prenatabs FA 1 TABLET tablet 1 tab PO DAILY Referrals / Follow Up: Hailey Ny PA-C [Primary Care Provider] - Disposition Disposition (needs filled in before D/C Order can be placed): Home, Self Care
--- NOTE | 2022-01-25 06:59 | PCM.PN.OB ---
Subjective Subjective No overnight complaints. Denies headache, vision change, chest pain, shortness of breath, nausea vomiting, no right upper quadrant pain. Objective Data Objective Data Vital Signs: Vital Signs Temp Pulse Resp BP Pulse Ox O2 Del Method 97.8 F 78 16 131/75 H 97 Room Air 01/25/22 01:03 01/25/22 01:05 01/25/22 01:03 01/25/22 01:05 01/25/22 01:03 01/25/22 01:03 Oxygen Delivery Method Room Air Weight: 190 lb 11.198 oz Body Mass Index (BMI) 33.7 Intake & Output: Intake and Output for Last 24 Hours 01/23/22 01/24/22 01/25/22 23:59 23:59 23:59 Intake Total 4135.82 / 4135.82 Output Total 2425 / 2425 1949 Balance 1710.82 / 1710.82 -1949 Lab / Micro Data Result Diagrams: 01/24/22 05:25 01/24/22 05:25 Micro: Microbiology 01/22/22 13:50 Urine, Clean Catch Urine Culture - Final Culture exhibits no growth. 01/22/22 11:35 Nasal Secretion SARS-CoV-2 Antigen (Rapid) - Final Physical Exam Const alert, oriented x3, no apparent distress, average body habitus, healthy appearing and well nourished HEENT normocephalic and moist oral mucous membranes Eyes PERRL Neck full ROM Resp normal respiratory effort, no retractions and no use of accessory muscles Extremity normal to inspection, full ROM and no clubbing, cyanosis or edema Neuro moves all extremities and no focal motor deficits Psych mental status grossly normal, affect normal, speech normal and activity/motor behavior normal Assessment & Plan (1) : PLAN: day 2. Breast-feeding. Pain well controlled. Preeclampsia without severe features, blood pressures within normal limits. Discussed blood pressures increased today compared to previous day. Patient wishes to discharge home. Has follow-up with profiler hand and will get blood pressure later today in office. Patient has blood pressure cuff at home educated patient on blood pressure parameters. Patient states understanding and wishes to discharge home. Okay to discharge home today
[2022-01-25 07:16] VITALS: BP 121/78; PULSE 87; RESP 15; TEMP 36.7; O2SAT 97
[2022-01-25 07:20] VITALS: O2SAT 98
[2022-01-25 07:21] VITALS: BP 121/78; PULSE 86
== END 2022-01-25 08:05 | disposition home or self-care (01) | DRG 807 ==
PROVIDERS: Admitting Provider Student in an Organized Health Care Education/Training Program; PCP Family Medicine; Visit Provider Obstetrics & Gynecology
DX: O14.94 Unspecified pre-eclampsia, complicating childbirth (principal); Z37.0 Single live birth; O99.824 Streptococcus B carrier state complicating childbirth; Z3A.37 37 weeks gestation of pregnancy; Z87.891 Personal history of nicotine dependence; Z20.822 Contact with and (suspected) exposure to COVID-19
CPT/HCPCS: 59025; 59050; 76815; 80053; 81001; 82570; 83615; 84156; 85025; 86850; 86900; 86901; 87086; 87426; 99218; J7120; A4216; G0378; J2405

== ENCOUNTER → 2024-12-27 | Outpatient (CLI) | payer OTHER, SELFPAY ==
--- NOTE | 2024-12-27 13:56 | CER_PTH ---
PATIENT: ALONZO CHAIREZ LOC: [facility] U#:[id number] AGE/SX: 29/F ROOM: RE12/27/[address]: Dr. Agatha Velazquez MD : 1995 BED: DIS: 12/27/2024 SPEC #: [id number] RECD: 12/27/24 16:36 STATUS: LINH DOTSON #: [id number] WILMER: 12/27/24 13:[address]: Agatha Velazquez DEPT: SURGICAL PATHOLOGY RECD BY: Oscar Moctezuma ENTERED: 12/28/24 09:32 SP TYPE: CERV OTHR DR: Hailey Ny PA-C Tissues: A - Uterine cervix, NOS B - Endocervical C - Vulva, NOS Procedures: Surgery Specimen Level IV HEADER OPERATION: Colposcopy, vulvar biopsy PRE-OP DIAGNOSIS: HSIL on PAP, vulvar lesion TISSUE SUBMITTED: A- 5o'clock, B- ECC, C- Right vulvar biopsy MICROSCOPIC DIAGNOSIS A. Cervix, 5 o'clock, biopsy: * High grade ERICKSON (MODESTO 3, severe dysplasia with HPV cytopathic effect). B. Endocervix, curettage: * Benign endocervical mucosa and proliferative endometrium. C. Right vulva, biopsy: * Benign fibroepithelial polyp (skin tag) - see note. Note: A single fragment of tissue is recovered after processing. MICROSCOPIC DESCRIPTION Slides are reviewed. GROSS DESCRIPTION Received in 3 formalin containers labeled with the patient's name and date of . Designated as: A. "5 o'clock" is a 0.3 cm fritz tissue fragment. Entirely submitted in 1 cassette. B. "ECC" is a 1.4 x 0.8 x 0.2 cm aggregate of fritz tissue fragments and mucoid material. Entirely submitted in 1 cassette. C. "RT vulva" are 2 fritz-brown tissue fragments, 0.2 cm and 0.3 cm. Entirely submitted in 1 cassette. [place] 12/28/2024 CPT:[id number]
== END | disposition home or self-care (01) ==
LOC: LABSPEC 16:22
PROVIDERS: PCP Family Medicine; Referring Provider Obstetrics & Gynecology; Visit Provider Obstetrics & Gynecology
DX: N89.8 Other specified noninflammatory disorders of vagina (principal)
CPT/HCPCS: 88305